=== PATIENT | male | born 1955 | race Caucasian/White ===

== ENCOUNTER 2021-12-06 14:24 | Outpatient (RCR) | payer MEDICARE, SELFPAY | END 2022-02-09 10:45 | disposition home or self-care (01) | PROVIDERS: PCP Family Medicine; Visit Provider Family Medicine | DX: M25.561 Pain in right knee (principal); M25.562 Pain in left knee; Z51.89 Encounter for other specified aftercare | CPT/HCPCS: 97110; 97140 ==

== ENCOUNTER 2022-03-10 17:22 | Emergency (ER) | payer MEDICARE, SELFPAY ==
[2022-03-10 17:39] VITALS: BP 151/103; PULSE 67; RESP 18; TEMP 36.4; O2SAT 96; BMI 37.7
--- OUTSIDE RECORDS SUMMARY | 2022-03-10 17:55 | XMS_ITS | Clinical Summary ---
:1955 Author Organization [facility] [place] [address] Care Team Providers Name Role Phone Laila Rodriguez DO Primary Care Provider Christi Ascencio RN Unavailable Camille Wagoner RN Unavailable Allergies Active Allergy Reactions Severity Noted Date Comments Dicyclomine Other - Describe In 05/14/2013 Problems breathing Comment Field and tightness in throat Penicillins Rash 12/11/2007 [place] Throat High 05/02/2009 Swelling/Closing Sulfa (Sulfonamide Rash 07/13/2009 Antibiotics) Medications Medication Sig Dispensed Refills Start End Status Date Date traZODone (DESYREL) TAKE 1 TABLET BY 90 tablet 1 05/14/20 Active 50 mg MOUTH EVERY NIGHT 19 tabletIndications: AT BEDTIME Insomnia, idiopathic blood-glucose by Not Applicable 1 Device 3 10/23/19 Active meterIndications: route. Dispense 20 Insulin dependent meter, test type 2 diabetes strips, lancets mellitus (HC) covered by pt ins. E11.9 IDDM type II - Test 3 times/day. TAMELA-LANTAIndicatio TAKE 30ML BY 355 mL 11 11/19/19 Active ns: History of MOUTH THREE TIMES 20 gastroesophageal DAILY NEEDED reflux (GERD) ONETOUCH DELICA TEST THREE TIMES 300 Each 3 03/01/20 Active PLUS LANCET 33 DAILY 20 gauge miscIndications: Type 2 diabetes mellitus without complication, with long-term current use of insulin (HC) benzonatate Three Times A Day 0 Active (TESSALON) 100 mg as needed capsule diphenhydrAMINE Every 8 Hours as 0 Active (BENADRYL) 25 mg needed capsule diphenoxylate-atrop Three Times A Day 0 Active ine, 2.5-0.025 mg, as needed (LOMOTIL) 2.5-0.025 mg tablet escitalopram Take 1 Tablet (10 0 01/04/20 Active oxalate (LEXAPRO) mg) by mouth 21 10 mg tablet every morning. Austedo 6 mg tab 6 mg 2 times 0 02/29/20 Active daily. Take with 21 9 mg tablet for total of 15 mg BID Austedo 9 mg tab Take 9 mg by 0 03/27/20 Active mouth 2 times 21 daily. Take with 6 mg tablet for total of 15 mg BID novofine autocover USE FOUR TIMES 400 Each 2 04/28/20 Active 30 gauge x 1/3 DAILY DIRECTED 21 needleIndications: Uncontrolled type 2 diabetes mellitus with hyperglycemia (HC) levothyroxine TAKE 1 TABLET BY 30 Tablet 12 05/02/20 Active (SYNTHROID) 75 mcg MOUTH DAILY 21 tabletIndications: Hypothyroidism (acquired) multivitamin (MVI) Take 1 Tablet by 90 Tablet 3 05/16/20 Active tabletIndications: mouth once daily. 21 Encounter for general health examination losartan (COZAAR) Take 1 Tablet (50 90 Tablet 3 06/15/19 Active 50 mg mg) by mouth once 22 tabletIndications: daily. HTN (hypertension) amLODIPine Take 1 Tablet (5 90 tablet. 1 08/23/19 A ctive (NORVASC) 5 mg mg) by mouth once 22 tabletIndications: daily. HTN (hypertension) insulin aspart, Prior to meals 15 mL 10 09/07/19 Active U-100, (NovoLOG per ssi tid. 22 Flexpen U-100 Glucose Insulin) 100 140-189=1U, unit/mL (3 mL) 190-239=2U, penIndications: 240-289=3U,290-33 Controlled type 2 9=4U,340-399=5U,4 diabetes mellitus 00-449=6U without complication, with long-term current use of insulin (HC) gabapentin TAKE 3 CAPSULES 810 Capsule 1 09/21/19 A ctive (NEURONTIN) 300 mg BY MOUTH THREE 22 capsuleIndications: TIMES DAILY Depression, major, in remission (HC) atorvastatin TAKE 1 TABLET BY 90 Tablet 0 10/20/19 Active (LIPITOR) 40 mg MOUTH EVERY NIGHT 22 tabletIndications: AT BEDTIME Controlled type 2 diabetes mellitus without complication, with long-term current use of insulin (HC) cyanocobalamin TAKE 1 TABLET BY 90 Tablet 3 11/16/19 Active (VITAMIN B12) 1,000 MOUTH DAILY 22 mcg tabletIndications: B12 deficiency hydrocortisone 1 % Apply topically 0 Active cream to affected area(s) 2 times daily. calcium carbonate Chew 1,000-2,000 0 Active (TUMS) 200 mg mg by mouth each calcium (500 mg) time if needed. chewable tablet Chew 2-4 tablets by mouth between meals and at bedtime as needed dextromethorphan Take 5-10 mL by 0 Active (ROBITUSSIN COUGH mouth every 4 LONG-ACTING) 15 hours if needed mg/5 mL liquid for Cough. Q4-6H prn for cough or congestion metFORMIN Take 4 Tablets 0 11/18/19 Activ e (GLUCOPHAGE XR) 500 (2,000 mg) by 22 mg Extended-Release mouth once daily. tabletIndications: Do NOT take until Insulin dependent November 20 type 2 diabetes mellitus (HC) ALPRAZolam (XANAX) Take 1 mg by 0 Active 1 mg tablet mouth in the morning and 1 mg in the evening. buPROPion Take 100 mg by 0 Activ e (WELLBUTRIN SR) 100 mouth in the mg morning and 100 Sustained-Release mg in the tablet evening. hydrOXYzine HCL Take 50 mg by 0 Active (ATARAX) 50 mg mouth in the tablet morning and 50 mg in the evening. mirtazapine Take 30 mg by 0 Acti ve (REMERON) 30 mg mouth at bedtime. tablet EPINEPHrine Inject 1 pen 0 Activ e (EpiPen) 0.3 mg/0.3 intramuscular mL auto-injector each time if needed for Allergic Reaction. diclofenac topical Apply 4 g 0 A ctive (Voltaren) 1 % gel topically to affected area(s) 4 times daily if needed. propranoloL TAKE 1 TABLET BY 270 Tablet 3 12/15/19 Active (INDERAL) 20 mg MOUTH 3 TIMES 22 tabletIndications: DAILY HTN (hypertension) acetaminophen TAKE 2 TABLETS BY 540 Tablet 3 12/15/19 Active (TYLENOL EXTRA MOUTH 3 TIMES 22 STRGTH) 500 mg DAILY tabletIndications: Pain omeprazole TAKE 1 CAPSULE BY 90 Capsule 2 02/08/20 Active (PRILOSEC) 20 mg MOUTH DAILY 22 Delayed-Release --TAKE 1 HOUR capsuleIndications: BEFORE A MEAL- Gastric reflux tamsulosin (FLOMAX) Take 1 Capsule 90 Capsule 1 02/08/20 Active 0.4 mg (0.4 mg) by mouth 22 capsuleIndications: once daily after Urinary a meal. incontinence, unspecified type OneTouch Ultra Test TEST THREE TIMES 300 Each 3 02/08/20 Active stripIndications: DAILY 22 Type 2 diabetes mellitus without complication, with long-term current use of insulin (HC) Lantus Solostar INJECT 70 UNITS 30 mL 0 03/06/20 Active U-100 Insulin 100 SUBCUTANEOUSLY 22 unit/mL (3 mL) ONCE DAILY penIndications: Controlled type 2 diabetes mellitus without complication, with long-term current use of insulin (HC) insulin glargine, Inject 70 units 45 mL 1 09/21/19 Discontinued U-100, (Lantus subcutaneous once 022 Solostar U-100 daily. Product Insulin) 100 desired: LANTUS unit/mL (3 mL) SOLOSTAR. New penIndications: dose Controlled type 2 diabetes mellitus without complication, with long-term current use of insulin (HC) aspirin (ECOTRIN) Take 1 Tablet (81 0 11/11/1901/19 Discontinued 81 mg enteric mg) by mouth once 022 (*Patient coated daily with a states no tabletIndications: meal. l onger GUSTAFSON (dyspnea on taki ng/Not on exertion) sending facility l ist) Active Problems Problem Noted Date Stage 3a chronic kidney disease 11/28/2021 Type 2 diabetes mellitus, with long-term current use o f insulin 11/17/2021 Dyspnea 11/17/2021 Abnormal stress test 11/17/2021 Overview: - 10/25/21 NM Stress Test: Small area of m ild reversibility identified in the anteroseptal region of the left ventricle, apical segment. This is suggestive of a small area of ischemia. 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 05/02/2009 Resolved Problems Problem Noted Date Resolved Date Rheumatoid arthritis(714.0) 05/02/2009 07/13/2009 Benign neoplasm of colon 08/12/2008 04/28/2019 Encounters Date Type Specialty Care Team Description 03/05/2022 Refill Laila Rodriguez DO Refi ll Request (Lantus Solostar U-100 Insulin) 02/09/2022 Office Visit Antonio Merida Consult (GUSTAFSON) MD Iam 02/09/2022 Travel 02/07/2022 Refill Laila Rodriguez DO Refi ll Request (Onetouch Ultra Test) 02/06/2022 Refill Laila Rodriguez DO Refi ll Request (Omeprazole/stone sulosin) 01/24/2022 Orders Only Scanner <No scans attac hed> 01/24/2022 Orders Only Scanner <No scans attac hed> 12/26/2021 Refill Laila Rodriguez DO Refi ll Request (Aspirin Chewable) 12/22/2021 Refill Laila Rodriguez DO Refi ll Request (Aspirin Chewable) 12/19/2021 Refill Laila Rodriguez DO Refi ll Request (ASPIRIN LOW CHEW 81MG) 12/19/2021 Telephone Laila Rodriguez DO Resu lts (PFTs) 12/14/2021 Procedure Only Testing (COMP LETE PFT PER DR. RODRIGUEZ/) 12/14/2021 Travel 12/11/2021 Refill Mary Oliver MD Refill Request (Aspirin Chewable) 12/11/2021 Refill Laila Rodriguez, Refi ll Request (Propranolol, Acetaminophen) from Last 3 Months Immunizations Name Administration Dates Next Due COVID-19 vaccine (Moderna 06/30/2020, 06/02/2020 100mcg/0.5mL) PF, MDV Hepatitis B (Adult) 04/24/2013, 02/10/2013, 12/17/2012 Influenza A (H1N1), Inactivated 03/17/2009 Influenza Intradermal PF 18-64 yrs 02/17/2007 Influenza Virus, Unspecified 05/14/2018, 04/17/2017, 016, 02/15/2015, 02/22/2014, 03/03/2013, 02/28/2012, 01/30/2011, 02/08/2010, 02/17/2007 Influenza, IIV3 (Age 6-35 mos) 02/08/2010, 01/31/2009 Influenza, IIV3 (Age >=3 years) 02/28/2012, 01/30/2011, 04/20, 03/14/2007, 03/30/2005 Influenza, IIV4 02/08/2021, 02/11/2020, 02/17/2019, 05/14/2018, 04/17/2017, 04/17/2017, 03/26/2016, 03/26/2016, 02/15/2015, 02/15/2015, 02/22/2014, 02/22/2014, 03/03/2013, 02/28/2012, 01/30/2011, 02/08/2010, 02/17/2007 Influenza, IIV4 (=>6mos) MDV 03/03/2013 Pneumococcal Poly,23-Valent 12/20/2015 (Pneumovax) Pneumococcal conj 13-Valent (Prevnar 12/26/2018 13) TD, UNSPECIFIED 02/08/2010 Tdap 02/08/2010 Zoster (Shingrix-RZV, recombinant) 05/08/2021, 03/09/2021 Zoster (Zostavax-ZVL, live) 06/15/2013 Family History Medical History Relation Name Comments Heart attack Brother 2 stents Heart attack Father triple bypass Heart attack Mother triple bypass Relation Name Status Comments Brother Father Mother Social History Tobacco Use Types Packs/Day Years Used Date Never Smoker Smokeless Tobacco: Never Used Tobacco Cessation: Counseling Given: Yes Alcohol Use Standard Drinks/Week Comments Not Currently 0 (1 standard drink = 0.6 oz pure alcoho l) 30 years sober Alcohol Habits Answer Date Recorded How often do you have a drink containing alcohol? Never 01/16/2019 How many drinks containing alcohol do you have on a Not aske d typical day when you are drinking? How often do you have six or more drinks on one Not asked occasion? Comment: 30 years sober 01/16/2019 Sex Assigned at Date Recorded Not on file COVID-19 Exposure Response Date Recorded In the last 10 days, have you been in contact with No / Unsu re 02/09/2022 1:42 PM CDT someone who was confirmed or suspected to have Coronavirus/COVID-19? Obstetrics History Last Filed Vital Signs Vital Sign Reading Time Taken Comments Blood Pressure 126/84 02/09/2022 2:05 PM CDT Pulse 73 02/09/2022 2:05 PM CDT Temperature 36.9 ??C (98.5 ??F) 11/18/2021 8:09 AM CDT Respiratory Rate 18 11/18/2021 8:09 AM CDT Oxygen Saturation 97% 02/09/2022 2:05 PM CDT Inhaled Oxygen Concentration - - Weight 117 kg (258 lb) 02/09/2022 2:05 PM CDT Height 177.8 cm (5' 10) 02/09/2022 2:05 PM CDT Body Mass Index 37.02 02/09/2022 2:05 PM CDT Plan of Treatment Upcoming Encounters Date Type Specialty Care Team Description 03/21/2022 Appointment 04/04/2022 Office Visit Laila Rodriguez DO [phone] (Wo rk) 04/27/2022 Office Visit Antonio Merida MD [address] [facility] [address] [place], [place] [address] (Wo rk) Health Maintenance Due Date Last Done Comments Tetanus booster 02/09/2020 02/08/2010, 02/08/2010 Medicare Wellness for age 65+ 2021 Pneumococcal series for age 65+ (3 2021 12/26/2018, 0 12/20/2015 - PPSV23 or PCV20) COVID-19 vaccine series (5 - 12/21/2021 10/26/2021, 021, Booster for Moderna series) 06/30/2020, Addition al history exists Influenza for age 65+ 01/18/2022 02/08/2021, 02/11/2020, 02/17/2019, Additional history exists Depression screening for age 12+ 08/02/2022 08/02/2021, , 07/19/2020, Additional history exists BMI (ht and wt on same day) for 02/09/2023 02/09/2022, 08/18, age 18+ 06/16/2019, Additional history exists Lipids for age 45-75 11/15/2026 11/15/2021, 05/16/2021, 05/25/2020, Additional history exists Colonoscopy through age 75 04/28/2029 04/28/2019, 9, 04/28/2019, Additional history exists Tdap Completed 02/08/2010 Zoster (shingles) series for age Completed 05/08/2021, , 50+ 06/15/2013 Hepatitis C screening for age Completed 05/16/2021 18-79 Procedures Procedure Name Priority Date/Time Associated Diagnosis Comme nts SCAN-EYE EXAM 01/24/2022 12:00 AM Results for this CDT procedure are i n the results section. SCAN-EYE EXAM 01/24/2022 12:00 AM Results for this CDT procedure are i n the results section. DE BRNCDILAT RSPSE Routine 12/14/2021 12:00 AM GUSTAFSON (dyspnea on Results for this SPMTRY CDT exertion) procedure are i n PRE&POST-BRNCDILAT the resul ts ADMN section. from Last 3 Months Results SCAN-EYE EXAM (01/24/2022 12:00 AM CDT) Narrative This result has an attachment that is no t available. Scanner OTHER SCAN-EYE EXAM (01/24/2022 12:00 AM CDT) Narrative This result has an attachment that is no t available. Scanner OTHER DE BRNCDILAT RSPSE SPMTRY PRE&POST-BRNCDILAT ADMN (12/14/2021 12:00 AM CDT) Narrative This result has an attachment that is no t available. Jovanna Arreola MD [facility] - RESPIRATORY [facility] from Last 3 Months Insurance Payer Benefit Plan / Subscriber ID Effective Dates Phone Addre ss Type Group MEDICARE PART A MEDICARE PART A [id number] 1992-Present ATTN: CLAIMS - HB USE ONLY HB ONLY [address] [place] [address] [place] [facility] [id number] 2021-Present [address] [place] [address] Advance Directives Latest Code Status on File Code Status Date Activated Date Inactivated Comments Full Code 11/17/2021 10:50 AM 11/18/2021 12:46 PM Code Status Discussion: Unable to Assess Preferences, Provid er to review later Full Code 09/19/2018 3:26 PM 09/19/2018 6:42 PM Full Code 08/12/2008 12:33 PM 08/13/2008 2:16 AM Care Teams Shuttle Fixer Relationship Specialty Start Date End Date Laila Rodriguez DO PCP - General Family Practice 06/17/19 [address] [place] [address] Christi Ascencio RN Care Manager - [facility] Registered Nurse 09/17/[address] [place] [address] [phone] Camille Wagoner RN Care Manager - [facility] [place]istered Nurse 09/17/[address] [place] [address] [phone] Radha Merino, tromper - [facility] Registered Nurse 09/17/[address] [place] [address] [address], [place] [address]
--- NOTE | 2022-03-10 17:56 | ED.GENADULT ---
HPI - General Adult General Chief complaint: Cough Stated complaint: Lightheaded, High Blood Pressure Time Seen by Provider: 03/10/22 17:23 History of Present Illness HPI narrative: This 66-year-old male comes in reporting nasal congestion and occasional cough. Symptoms started yesterday. He lives in an assisted living facility and is able to ambulate around freely. He states that there are some people nearby who have pneumonia and he is concerned that he is having some kind infection. He arrives with normal temperature with normal pulse and respirations. His oximetry is 96% on room air. He does not report any fever. He states that he feels some shortness of breath. Related Data Home Medications Medication Instructions Recorded Confirmed acetaminophen 500 mg tablet mg 03/10/22 alprazolam 1 mg tablet mg 03/10/22 amlodipine 5 mg tablet mg 03/10/22 atorvastatin 40 mg tablet mg 03/10/22 bupropion HCl 100 mg tablet,12 hr mg PO 03/10/22 sustained-release cyanocobalamin (vitamin B-12) mcg 03/10/22 1,000 mcg tablet deutetrabenazine 6 mg tablet mg PO 03/10/22 (Austedo) deutetrabenazine 9 mg tablet mg PO 03/10/22 (Austedo) diclofenac sodium 1 % topical gel topical 03/10/22 escitalopram oxalate 10 mg tablet mg 03/10/22 gabapentin 300 mg capsule mg 03/10/22 hydroxyzine HCl 50 mg tablet mg 03/10/22 insulin aspart U-100 100 unit/mL subcut 03/10/22 (3 mL) subcutaneous pen (Novolog Flexpen U-100 Insulin aspart) insulin glargine 100 unit/mL (3 unit subcut 03/10/22 mL) subcutaneous pen (Lantus Solostar U-100 Insulin) levothyroxine 75 mcg tablet mcg 03/10/22 losartan 50 mg tablet mg 03/10/22 metformin 500 mg tablet,extended mg PO 03/10/22 release 24 hr mirtazapine 30 mg tablet mg 03/10/22 multivitamin with folic acid 400 tab PO 03/10/22 mcg tablet (Tab-A-Reina) omeprazole 20 mg capsule,delayed mg 03/10/22 release propranolol 20 mg tablet mg 03/10/22 tamsulosin 0.4 mg capsule mg PO 03/10/22 trazodone 50 mg tablet mg 03/10/22 Allergies Allergy/AdvReac Type Severity Reaction Status Date / Time Penicillins Allergy Verified 03/10/22 17:35 strawberry Allergy Verified 03/10/22 17:35 Sulfa (Sulfonamide Allergy Verified 03/10/22 17:35 Antibiotics) benttyl Allergy Uncoded 03/10/22 17:35 Review of Systems Status of ROS: Reports: 10 or more systems reviewed and unremarkable except as noted in History and below Narrative: Constitutional: No fevers, no weight gain or loss. Eyes: No discharge. No vision changes. HENT: No congestion, no sore throat, no ear pain. Nasal congestion. Cardiovascular: No chest pain, no palpitations. Respiratory: Occasional cough. Gastrointestinal: No abdominal pain, no vomiting, no diarrhea. Genitourinary: No dysuria, no hematuria. Musculoskeletal: Normal range of motion. Skin: No rashes, no pruritis. Neurological: No dizziness, weakness, sensory change, speech change. Endo/Heme/Allergies: No bruising or bleeding. No polydipsia. Pysch: no suicidality, no anxiety, no insomnia. All other systems reviewed and are negative. PFSH PFS Social History Smoking Status: Never smoker How often do you have a drink containing alcohol: never AUDIT-C Alcohol total score: 0 Non-prescribed substance use: denies use Exam Narrative: Exam Narrative: Constitutional: Well-developed, well-nourished, no acute distress. HEENT: Normocephalic, atraumatic. Neck: Normal range of motion. Nontender. Supple. Heart: Regular. No murmurs. Normal rate. Intact distal pulses. Lungs: Clear to auscultation. No chest discomfort. No wheezes, rhonchi, or rales. Abdomen: Normal bowel sounds. Nontender. No rebound tenderness. Genitalia: Deferred. Back: No midline tenderness. Normal range of motion. Extremities: Normal range of motion. No injury. Skin: Intact. No rash. Warm. No erythema or pallor. Neurologic: No altered sensation. No weakness. Alert and oriented. Psychiatric: No suicidality. No anxiety or depression. No insomnia. Nursing notes and vitals signs are reviewed. Const: Vital Signs, click to edit/add: Vital Signs - 24 hr 03/10/22 17:39 03/10/22 18:00 Temperature 97.5 F L Pulse Rate [Right Pulse Oximeter] 67 64 Respiratory Rate 18 18 Blood Pressure [Ri ght Upper Arm] 151/103 H 174/98 H Pulse Oximetry 96 96 Oxygen Delivery Me thod Room Air Room Air Course Vital Signs Vital signs: Initial Vital Signs Temperature 97.5 F L 03/10/22 17:39 Temperature Source Temporal Artery Scan 03/10/22 17:39 Pulse Rate 67 03/10/22 17:39 Respiratory Rate 18 03/10/22 17:39 Blood Pressure 151/103 H 03/10/22 17:39 Blood Pressure Mean 119 03/10/22 17:39 Blood Pressure Position Sitting 03/10/22 17:39 Pulse Oximetry 96 03/10/22 17:39 Oxygen Delivery Method 03/10/22 17:39 Vital Signs Temperature 97.5 F L 03/10/22 17:39 Pulse Rate 67 03/10/22 17:39 Respiratory Rate 18 03/10/22 17:39 Blood Pressure 151/103 H 03/10/22 17:39 Pulse Oximetry 96 03/10/22 17:39 Oxygen Delivery Method 03/10/22 17:39 Temperature 97.5 F L 03/10/22 17:39 Pulse Rate 64 03/10/22 18:00 Respiratory Rate 18 03/10/22 18:00 Blood Pressure 174/98 H 03/10/22 18:00 Pulse Oximetry 96 03/10/22 18:00 Oxygen Delivery Method 03/10/22 18:00 Medical Decision Making MDM Narrative Medical decision making narrative: This patient comes in reporting nasal congestion and occasional cough. He lives in an assisted living facility and is concerned with these symptoms because some of the people around him of had pneumonia and he wonders if he has caught some kind of similar infection. On exam his lungs sound clear bilaterally. I did would talk with him about doing an x-ray but indicated reassurance with his vital signs and exam. A nasal swab is acquired and returns negative for COVID and influenza. This was reassuring enough for the patient to plans to return home and can use [id number] medicines as needed and directed for symptomatic relief. I instructed him to return if becoming worse, especially if becoming short of breath. Lab Data Labs: Lab Results 03/10/22 Range/Units 17:25 SARS-CoV-2 (PCR) Negative SARS-CoV-2 (Negative) Influenza Type A (PCR) Negative PCR FLU A (Negative) Influenza Type B (PCR) Negative PCR FLU B (Negative) Discharge Plan Discharge Clinical Impression: Acute upper respiratory infection Patient Disposition: Home, Self-Care Condition: Stable Additional Instructions: Take medication as needed and indicated. Follow up with MD or return if worsening. Prescriptions: No Action losartan 50 mg tablet atorvastatin 40 mg tablet trazodone 50 mg tablet alprazolam 1 mg tablet cyanocobalamin (vitamin B-12) 1,000 mcg tablet hydroxyzine HCl 50 mg tablet amlodipine 5 mg tablet acetaminophen 500 mg tablet bupropion HCl 100 mg tablet sustained-release 12 hr PO levothyroxine 75 mcg tablet tamsulosin 0.4 mg capsule PO mirtazapine 30 mg tablet gabapentin 300 mg capsule omeprazole 20 mg capsule,delayed release(DR/EC) propranolol 20 mg tablet metformin 500 mg tablet extended release 24 hr PO escitalopram oxalate 10 mg tablet insulin aspart U-100 [Novolog Flexpen U-100 Insulin] 100 unit/mL (3 mL) insulin pen SUBCUT insulin glargine [Lantus Solostar U-100 Insulin] 100 unit/mL (3 mL) insulin pen SUBCUT diclofenac sodium 1 % gel TOPICAL multivitamin with folic acid [Tab-A-Reina] 400 mcg tablet PO Austedo 6 mg tablet PO Austedo 9 mg tablet PO Follow Up/Referrals: Laila Rodriguez DO [Primary Care Provider] - Stand Alone Forms: [facility] Info Instructions
[2022-03-10 18:00] VITALS: BP 174/98; PULSE 64; RESP 18; O2SAT 96
[2022-03-10 18:31] LABS: SARS PCR* Negative SARS-CoV-2 (Negative)
[2022-03-10 18:32] LABS: PCR FLU A Negative PCR FLU A (Negative); PCR FLU B Negative PCR FLU B (Negative)
[2022-03-10 19:00] VITALS: BP 185/104; PULSE 65; O2SAT 96
== END 2022-03-10 19:19 | disposition home or self-care (01) ==
PROVIDERS: Emergency Provider Emergency Medicine Emergency Medical Services; PCP Family Medicine
DX: J06.9 Acute upper respiratory infection, unspecified (principal)
CPT/HCPCS: 87631; 99283; 99284

== ENCOUNTER 2022-11-21 13:45 | Outpatient (RCR) | payer MEDICARE, SELFPAY | END 2023-01-08 07:39 | disposition home or self-care (01) | PROVIDERS: PCP Family Medicine; Visit Provider Family Medicine | DX: M54.50 Low back pain, unspecified (principal); G89.29 Other chronic pain; M54.16 Radiculopathy, lumbar region; M25.60 Stiffness of unspecified joint, not elsewhere classified; M62.81 Muscle weakness (generalized); Z51.89 Encounter for other specified aftercare | CPT/HCPCS: 97110; 97140; 97161 ==

== ENCOUNTER 2022-12-11 08:40 | Outpatient (CLI) | payer MEDICARE, SELFPAY ==
--- NOTE | 2022-12-11 09:00 | CRLHL7_ITS ---
For Patients: As a result of the Century Cures Act, medical imaging exams and procedure reports are released immediately into your electronic medical record. You may view this report before your referring provider. If you have questions, please contact your health care provider. Indication: Dyspnea on exertion x 1-2 years, not worse, but not getting better. No known reason. Technique: Noncontrast CT chest Please note that all CT scans at this facility use dose modulation, iterative reconstruction, and/or weight-based dosing when appropriate to reduce radiation dose to as low as reasonably achievable. Comparison: 10/31/2021 Findings: Small left pleural effusion is present. There is mild atelectasis within the left lower lobe. Chronic scarring within the right lower lobe posteriorly. No enlarged intrathoracic lymph nodes. Coronary artery calcifications. Cysts within the liver are stable. Gallbladder absent. No infiltrate or edema. No pneumothorax. No fracture. Impression: Small left pleural effusion. Mild left lower lobe atelectasis. Mild scarring within the lingula and within the right lower lobe posteriorly. No adenopathy. Please note that all CT scans at this facility use dose modulation, iterative reconstruction, and/or weight-based dosing when appropriate to reduce radiation dose to as low as reasonably achievable. Dictated by Antonio Tirado MD @ 12/11/2022 12:22:33 PM (Electronically Signed)
== END 2022-12-11 08:41 | disposition home or self-care (01) ==
LOC: CT 08:41
PROVIDERS: PCP Family Medicine; Visit Provider Internal Medicine
DX: J98.4 Other disorders of lung (principal); R06.09 Other forms of dyspnea; J90 Pleural effusion, not elsewhere classified; J98.11 Atelectasis
CPT/HCPCS: 71250

== ENCOUNTER 2023-01-24 16:47 | Emergency (ER) | payer MEDICARE, SELFPAY ==
[2023-01-24] VITALS (12 sets, daily range): BP systolic 123–150; BP diastolic 56–93; PULSE 50–55; RESP 16; TEMP 35.7; O2SAT 93–97; BMI 36.4
--- NOTE | 2023-01-24 17:38 | CRLHL7_ITS ---
For Patients: As a result of the Cures Act, medical imaging exams and procedure reports are released immediately into your electronic medical record. You may view this report before your referring provider. If you have questions, please contact your health care provider. INDICATION: Chest pain. TECHNIQUE: Chest 2 views. COMPARISON: January 01, 2021. FINDINGS: Cardiovascular and mediastinum: Stable heart size and vasculature. Lungs and pleural spaces: Stable left lower lobe atelectasis/scarring. No sign of infiltrate or mass. No sign of pleural effusion. No pneumothorax. Bones and soft tissues: No significant findings. IMPRESSION: No acute or significant findings. Dictated by Sharan Strong MD @ 01/24/2023 10:51:39 PM (Electronically Signed)
--- NOTE | 2023-01-24 17:38 | CRLHL7_ITS ---
For Patients: As a result of the Century Cures Act, medical imaging exams and procedure reports are released immediately into your electronic medical record. You may view this report before your referring provider. If you have questions, please contact your health care provider. INDICATION: SUPRAPUBIC AND RLQ PAIN TECHNIQUE: CT abdomen and pelvis acquired with 100 cc Omnipaque 350 IV contrast. COMPARISON: None. FINDINGS: Lower chest: Unremarkable. Liver: Multiple cysts in the liver. Normal in size and attenuation. No suspicious masses. Gallbladder and bile ducts: Status post cholecystectomy. No intra or extra hepatic biliary ductal dilatation. Pancreas: Unremarkable. No mass or inflammation. Spleen: Unremarkable. Normal in size. No masses. Adrenal glands: Unremarkable. No nodules. Kidneys: Left interpolar region exophytic cyst measuring up to 6 centimeters in diameter. Right inferior pole cyst measuring 5.1 centimeters in diameter. No suspicious masses, stones, or hydronephrosis. GI tract: Unremarkable. Normal in caliber. No sign of mass or inflammation. Normal appendix. Vasculature: Abdominal aorta is normal in caliber. Mesenteric arteries are patent. Lymph nodes: No lymphadenopathy. Peritoneum/Abdominal Wall: Unremarkable. No sign of mass or infiltration. No free air or significant free fluid. Pelvis: Unremarkable. Bones: Unremarkable for age. IMPRESSION: No acute intra-abdominal process identified. Please note that all CT scans at this facility use dose modulation, iterative reconstruction, and/or weight-based dosing when appropriate to reduce radiation dose to as low as reasonably achievable. Dictated by Marnie Staton MD @ 01/24/2023 7:43:50 PM (Electronically Signed)
[2023-01-24] MEDS: LACTATED RINGERS 1000 ML 1,000 ML IV (17:59)
[2023-01-24 18:07] LABS: Basophils Percent Auto 0.3 % (0.0-3.0); Eosinophils Percent Auto 5.6 % (0.0-7.0); Hematocrit 39.9 % (37.0-53.0); Hemoglobin* 13.5 gm/dL (13.5-17.5); Lymphocytes Percent Auto 40.8 % (20-44); Mean Corpuscular HGB Conc 34 gm/dL (32-36); Mean Corpuscular Hemoglobin 29 pg (26-34); Mean Corpuscular Volume 85 fL (80-100); Monocytes Percent Auto 10.1 % (0.0-11.0); Neutrophils Percent Auto 43.2 % (42.0-72.0); Platelet Count* 201 K/uL (140-440); RDW Coefficient of Variation % 12.1 % (11.5-15.5); Red Blood Count 4.71 m/uL (4.30-5.90); White Blood Count* 3.95 K/uL (4.50-11.00)
[2023-01-24 18:08] LABS: Slide Review Reflex No
--- NOTE | 2023-01-24 18:10 | CRLHL7_ITS ---
For Patients: As a result of the Century Cures Act, medical imaging exams and procedure reports are released immediately into your electronic medical record. You may view this report before your referring provider. If you have questions, please contact your health care provider. INDICATION: Dizziness. TECHNIQUE: Noncontrast CT of the head with multiplanar reformat in bone and soft tissue algorithms. COMPARISON: CT head dated 05/12/2020. FINDINGS: No acute intracranial hemorrhage. The you-white matter interface is preserved. The ventricles are normal in size. Carotid siphon atherosclerotic calcification is noted. The skull base and calvarium are within normal limits. There is evidence of prior cataract surgery. Paranasal sinuses and mastoid air cells are predominantly clear. IMPRESSION: No acute intracranial abnormality. Please note that all CT scans at this facility use dose modulation, iterative reconstruction, and/or weight-based dosing when appropriate to reduce radiation dose to as low as reasonably achievable. Dictated by Desmond Chiang MD @ 01/24/2023 7:28:00 PM (Electronically Signed)
[2023-01-24 18:19] LABS: Albumin* 4.4 g/dL (3.3-5.0); Chloride* 103 mmol/L (96-114); Sodium* 140 mmol/L (135-149)
[2023-01-24 18:20] LABS: Potassium* 4.3 mmol/L (3.6-5.1)
[2023-01-24 18:22] LABS: Alkaline Phosphatase* 74 U/L (40-150); Anion Gap 10 mEq/L (7-15); Aspartate Amino Transferase* 28 U/L (12-35); Bilirubin Total* 0.4 mg/dL (0.1-1.5); Blood Urea Nitrogen* 15 mg/dL (7-30); Carbon Dioxide* 27 mmol/L (20-32); Creatinine* 0.9 mg/dL (0.5-1.5); Est. Creatinine Clearance* 75.03; Estimated Glomerular Filt Rate 94 ml/min; Glucose* 129 mg/dL (60-115); Lipase* 117 U/L (23-300); Total Protein* 7.7 g/dL (6.0-8.3)
[2023-01-24 18:23] LABS: Alanine Aminotransferase* 34 U/L (4-50); Calcium* 9.4 mg/dL (8.4-10.6); Magnesium* 1.8 mg/dL (1.5-2.6)
[2023-01-24 18:35] LABS: Troponin I* < 0.01 ng/mL (0.01-0.04)
[2023-01-24 18:43] LABS: PCR FLU A Negative PCR FLU A (Negative); PCR FLU B Negative PCR FLU B (Negative); PCR RSV Negative PCR RSV (Negative)
[2023-01-24 18:50] LABS: SARS PCR* Negative SARS-CoV-2 (Negative)
[2023-01-24 19:47] LABS: Appearance Urine Clear (Clear); Bilirubin Urine Negative (Negative); Blood Urine Negative (Negative); Color Urine Yellow (Yellow); Glucose Urine Negative (Negative); Ketones Urine Negative (Negative); Leukocyte Esterase Urine Negative (Negative); Nitrite Urine Negative (Negative); Protein Urine Negative (Negative); Urobilinogen Urine 0.2 (0.2-1.0)
[2023-01-24] MEDS: MECLIZINE HCL 25 MG TABLET PO (20:02)
--- NOTE | 2023-01-24 20:08 | ED.NURSE ---
Assumed care of pt at 1930 from Margie Jalloh RN.
[2023-01-24 20:11] LABS: RBC Urine 0-2 (0-2); Squamous Epithelial Cell Urine Few (None-Few); WBC Urine 0-2 (0-5)
--- NOTE | 2023-01-24 20:27 | ED_ITS ---
HPI - General Adult General Date Seen: 01/24/23 Chief complaint: Dizziness/Vertigo Stated complaint: High blood pressure, dizzy, lethargic Time Seen by Provider: 01/24/23 17:22 Source: patient History of Present Illness HPI narrative: Patient is a 67-year-old male with a history of diabetes, hypothyroidism presenting to the emergency department for dizziness, fatigue. He states the symptoms started earlier this morning. He was hypertensive at the [facility] in the gave him hydralazine. He states he she discusses his blood pressure did come back down to normal but it did not. States the dizziness feels like he is rocking on a boat. States he has had symptoms like this when his blood pressure has been elevated. Does states feeling dehydrated also. Denies lightheadedness, shortness of breath, weakness, numbness, diarrhea, constipation, fevers, chills, vision changes. Patient denies any recent head trauma. Does admit to some mild chest pain. No history of cardiac disease. Does state he is having some mild chest pain but has never needed a stent and does not have any known coronary disease. Is also admitting to suprapubic and right lower quadrant abdominal pain that started today. Related Data Home Medications Medication Instructions Recorded Confirmed acetaminophen 500 mg tablet 1,000 mg PO TID 03/10/22 01/24/23 alprazolam 1 mg tablet 1 mg PO BID 03/10/22 01/24/23 amlodipine 5 mg tablet 10 mg PO DAILY 03/10/22 01/24/23 atorvastatin 40 mg tablet 40 mg PO DAILY 03/10/22 01/24/23 bupropion HCl 100 mg tablet,12 hr 100 mg PO BID 03/10/22 01/24/23 sustained-release cyanocobalamin (vitamin B-12) 1,000 mcg PO DAILY 03/10/22 01/24/23 1,000 mcg tablet deutetrabenazine 6 mg tablet 6 mg PO BID 03/10/22 01/24/23 (Austedo) deutetrabenazine 9 mg tablet 9 mg PO BID 03/10/22 01/24/23 (Austedo) escitalopram oxalate 10 mg tablet 10 mg PO DAILY 03/10/22 01/24/23 gabapentin 300 mg capsule 900 mg PO TID 03/10/22 01/24/23 hydroxyzine HCl 50 mg tablet 50 mg PO BID 03/10/22 01/24/23 insulin aspart U-100 100 unit/mL 1 sliding scale dose subcut 03/10/22 01/24/23 (3 mL) subcutaneous pen (Novolog TIDWMEAL FlexPen U-100 Insulin aspart) insulin glargine 100 unit/mL (3 70 unit subcut DAILY 03/10/22 01/24/23 mL) subcutaneous pen (Lantus Solostar U-100 Insulin) levothyroxine 75 mcg tablet 75 mcg PO DAILY 03/10/22 01/24/23 losartan 50 mg tablet 50 mg PO DAILY 03/10/22 01/24/23 metformin 500 mg tablet,extended 2,000 mg PO DAILY 03/10/22 01/24/23 release 24 hr mirtazapine 30 mg tablet 30 mg PO HS 03/10/22 01/24/23 multivitamin with folic acid 400 1 tab PO DAILY 03/10/22 01/24/23 mcg tablet (Tab-A-Reina) omeprazole 20 mg capsule,delayed 20 mg PO DAILY 03/10/22 01/24/23 release propranolol 20 mg tablet 20 mg PO TID 03/10/22 01/24/23 tamsulosin 0.4 mg capsule 0.4 mg PO Q24H 03/10/22 01/24/23 trazodone 50 mg tablet 50 mg PO HS 03/10/22 01/24/23 hydrocortisone 1 % topical cream 1 applic topical BID PRN 01/24/23 01/24/23 Previous Rx's Medication Instructions Recorded meclizine 25 mg tablet 25 mg PO QID #20 tabs 01/24/23 Allergies Allergy/AdvReac Type Severity Reaction Status Date / Time Penicillins Allergy Verified 01/24/23 17:12 strawberry Allergy Verified 01/24/23 17:12 Sulfa (Sulfonamide Allergy Verified 01/24/23 17:12 Antibiotics) benttyl Allergy Uncoded 03/10/22 17:35 Review of Systems Status of ROS: Reports: 10 or more systems reviewed and unremarkable except as noted in History and below PFSH PFSH Social History Smoking Status: Never smoker How often do you have a drink containing alcohol: never AUDIT-C Alcohol total score: 0 Non-prescribed substance use: denies use Exam Narrative: Exam Narrative: Const: Well-nourished, Well-developed, in mild distress Eyes: PERRL, no conjunctival injection, and symmetrical lids ENMT: Atraumatic external nose and ears. Moist mucous membranes. Neck: Symmetric, trachea midline, No thyromegaly. CVS: RRR, No murmurs or gallops. Peripheral pulses 2+ and equal in all extremities RESP: Unlabored respiratory effort. Clear to auscultation bilaterally. GI: Nontender/Nondistended, No rebound or guarding. MSK:Extremities w/o deformity, Normal Active ROM Skin: Warm, Dry. No rashes or lesions. Neuro: Normal Muscle tone, No focal neurological deficits. Negative hints exam Psych: Awake, Alert, & Oriented x3. Appropriate mood and affect. Const: Vital Signs, click to edit/add: Vital Signs - 24 hr 01/24/23 17:07 01/24/23 17:22 01/24/23 17:28 Temperature 96.3 F L Pulse Rate 51 L 51 L Pulse Rate [Left P ulse Oximeter] 52 L Respiratory Rate 16 Blood Pressure 132/75 Blood Pressure [Ri ght Upper Arm] 144/93 H Pulse Oximetry 95 97 95 Oxygen Delivery Me thod Room Air 01/24/23 17:30 01/24/23 17:33 01/24/23 17:52 Temperature Pulse Rate 52 L 52 L 55 L Pulse Rate [Left P ulse Oximeter] Respiratory Rate Blood Pressure 139/73 133/56 L Blood Pressure [Ri ght Upper Arm] Pulse Oximetry 94 94 94 Oxygen Delivery Me thod 01/24/23 18:00 01/24/23 18:03 01/24/23 18:30 Temperature Pulse Rate 53 L 54 L 50 L Pulse Rate [Left P ulse Oximeter] Respiratory Rate Blood Pressure 123/72 Blood Pressure [Ri ght Upper Arm] Pulse Oximetry 94 93 95 Oxygen Delivery Me thod 01/24/23 18:36 01/24/23 19:13 01/24/23 19:30 Temperature Pulse Rate 51 L 53 L 51 L Pulse Rate [Left P ulse Oximeter] Respiratory Rate Blood Pressure 150/77 H Blood Pressure [Ri ght Upper Arm] Pulse Oximetry 95 95 97 Oxygen Delivery Me thod Course Vital Signs Vital signs: Initial Vital Signs Temperature 96.3 F L 01/24/23 17:07 Temperature Source Temporal Artery Scan 01/24/23 17:07 Pulse Rate 52 L 01/24/23 17:07 Respiratory Rate 16 01/24/23 17:07 Blood Pressure 144/93 H 01/24/23 17:07 Blood Pressure Mean 110 H 01/24/23 17:07 Blood Pressure Position Sitting 01/24/23 17:07 Pulse Oximetry 95 01/24/23 17:07 Oxygen Delivery Method Room Air 01/24/23 17:07 Vital Signs Temperature 96.3 F L 01/24/23 17:07 Pulse Rate 52 L 01/24/23 17:07 Respiratory Rate 16 01/24/23 17:07 Blood Pressure 144/93 H 01/24/23 17:07 Pulse Oximetry 95 01/24/23 17:07 Oxygen Delivery Method Room Air 01/24/23 17:07 Temperature 96.3 F L 01/24/23 17:07 Pulse Rate 51 L 01/24/23 19:30 Respiratory Rate 16 01/24/23 17:07 Blood Pressure 150/77 H 01/24/23 18:36 Pulse Oximetry 97 01/24/23 19:30 Oxygen Delivery Method Room Air 01/24/23 17:07 Medical Decision Making [facility] Narrative Medical decision making narrative: Patient 67-year-old male presented emergency department for multiple complaints. He states his biggest complaint currently is dizziness. States his dizziness occurs whenever he is hypertensive. He was given hydralazine at his assisted living states that in not improve his symptoms. Is complaining of very mild chest pain but he states has been going on for a while and previously had a heart catheterization done but was normal. States he is feeling dehydrated. Also complaining of lower abdominal pain and right lower quadrant pain. Head CT and abdominal/pelvis CT were ordered. Abdominal pain differential includes appendicitis, cystitis. Unlikely to be cholecystitis or an SBO. For his dizziness a consider TIA, stroke, BPPV. Cardiac workup was ordered along with lipase, cholecystitis the SARS B, magnesium, urinalysis EKG showed no concerning abnormalities. Patient's lab work showed no concerning abnormalities. Troponin was normal. No signs of UTI. Cultures flu/RSV was negative. Head CT showed no concerning abnormalities. Abdominal CT showed no concerning abnormalities. I did order a chest x-ray which was read by myself which showed no concerning abnormalities as read by myself. After receiving 1 L of lactated Ringer's he says his dizziness improved dramatically. He still having some dizziness and meclizine was given. After meclizine he states his symptoms have fully resolved and he feels good and 1 like to go home. With a negative hints exam and normal head CT is unlikely to be stroke so patient can be safely discharged. Lab Data Labs: Lab Results 01/24/23 01/24/23 Range/Units 17:55 19:41 WBC 3.95 L (4.50-11.00) K/uL RBC 4.71 (4.30-5.90) m/uL Hgb 13.5 (13.5-17.5) gm/dL Hct 39.9 (37.0-53.0) % MCV 85 (80-100) fL MCH 29 (26-34) pg MCHC 34 (32-36) gm/dL RDW Coeff of Adriana 12.1 (11.5-15.5) % Plt Count 201 (140-440) K/uL Neut % (Auto) 43.2 (42.0-72.0) % Lymph % (Auto) 40.8 (20-44) % Runnels % (Auto) 10.1 (0.0-11.0) % Eos % (Auto) 5.6 (0.0-7.0) % Baso % (Auto) 0.3 (0.0-3.0) % Neut # (Auto) 1.70 (1.7-7.0) K/uL Lymph # (Auto) 1.60 (0.90-2.90) K/uL Runnels # (Auto) 0.40 (0.00-0.90) K/UL Eos # (Auto) 0.20 (0.00-0.50) K/uL Baso # (Auto) 0.00 (0.00-0.30) K/uL Abs Immat Gran (auto) 0.00 (0.00-0.30) K/uL Imm/Tot Granulo (auto) 0.0 % Sodium 140 (135-149) mmol/L Potassium 4.3 (3.6-5.1) mmol/L Chloride 103 (96-114) mmol/L Carbon Dioxide 27 (20-32) mmol/L Anion Gap 10 (7-15) mEq/L BUN 15 (7-30) mg/dL Creatinine 0.9 (0.5-1.5) mg/dL Estimated Creat Clear 75.03 Estimated GFR 94 ml/min Glucose 129 H (60-115) mg/dL Calcium 9.4 (8.4-10.6) mg/dL Magnesium 1.8 (1.5-2.6) mg/dL Total Bilirubin 0.4 (0.1-1.5) mg/dL AST 28 (12-35) U/L ALT 34 (4-50) U/L Alkaline Phosphatase 74 (40-150) U/L Troponin I < 0.01 L (0.01-0.04) ng/mL Total Protein 7.7 (6.0-8.3) g/dL Albumin 4.4 (3.3-5.0) g/dL Lipase 117 (23-300) U/L Urine Color Yellow (Yellow) Urine Appearance Clear (Clear) Urine pH 6.0 (5.0-8.5) Ur Specific [place] 1.010 (1.000-1.030) Urine Protein Negative (Negative) Urine Glucose (UA) Negative (Negative) Urine Ketones Negative (Negative) Urine Blood Negative (Negative) Urine Nitrite Negative (Negative) Urine Bilirubin Negative (Negative) Urine Urobilinogen 0.2 (0.2-1.0) Ur Leukocyte Esterase Negative (Negative) Urine RBC 0-2 (0-2) Urine WBC 0-2 (0-5) Ur Squamous Epith Cells Few (None-Few) Urine Bacteria None (None) SARS-CoV-2 (PCR) Negative SARS-CoV-2 (Negative) Influenza Type A (PCR) Negative PCR FLU A (Negative) Influenza Type B (PCR) Negative PCR FLU B (Negative) RSV (PCR) Negative PCR RSV (Negative) Imaging Data CT scan - head: Radiologist's impression: INDICATION: Dizziness. TECHNIQUE: Noncontrast CT of the head with multiplanar reformat in bone and soft tissue algorithms. COMPARISON: CT head dated 05/12/2020. FINDINGS: No acute intracranial hemorrhage. The you-white matter interface is preserved. The ventricles are normal in size. Carotid siphon atherosclerotic calcification is noted. The skull base and calvarium are within normal limits. There is evidence of prior cataract surgery. Paranasal sinuses and mastoid air cells are predominantly clear. IMPRESSION: No acute intracranial abnormality. Please note that all CT scans at this facility use dose modulation, iterative reconstruction, and/or weight-based dosing when appropriate to reduce radiation dose to as low as reasonably achievable. Dictated by Desmond Chiang MD @ 01/24/2023 7:28:[address] scan - abdomen: Radiologist's impression: INDICATION: SUPRAPUBIC AND RLQ PAIN TECHNIQUE: CT abdomen and pelvis acquired with 100 cc Omnipaque 350 IV contrast. COMPARISON: None. FINDINGS: Lower chest: Unremarkable. Liver: Multiple cysts in the liver. Normal in size and attenuation. No suspicious masses. Gallbladder and bile ducts: Status post cholecystectomy. No intra or extra hepatic biliary ductal dilatation. Pancreas: Unremarkable. No mass or inflammation. Spleen: Unremarkable. Normal in size. No masses. Adrenal glands: Unremarkable. No nodules. Kidneys: Left interpolar region exophytic cyst measuring up to 6 centimeters in diameter. Right inferior pole cyst measuring 5.1 centimeters in diameter. No suspicious masses, stones, or hydronephrosis. GI tract: Unremarkable. Normal in caliber. No sign of mass or inflammation. Normal appendix. Vasculature: Abdominal aorta is normal in caliber. Mesenteric arteries are patent. Lymph nodes: No lymphadenopathy. Peritoneum/Abdominal Wall: Unremarkable. No sign of mass or infiltration. No free air or significant free fluid. Pelvis: Unremarkable. Bones: Unremarkable for age. IMPRESSION: No acute intra-abdominal process identified. Please note that all CT scans at this facility use dose modulation, iterative reconstruction, and/or weight-based dosing when appropriate to reduce radiation dose to as low as reasonably achievable. Dictated by Marnie Staton MD @ 01/24/2023 7:43:50 PM Chest x-ray: My impression: No acute cardiothoracic abnormalities ECG Data Attestation: I personally reviewed and interpreted this ECG as follows: Interpretation: Sinus bradycardia rate 49 beats per minute, normal intervals, normal axis, no ST or T-wave abnormalities. Discharge Plan Discharge Clinical Impression: Benign paroxysmal positional vertigo Qualifiers: Laterality: unspecified laterality Qualified Code(s): H81.10 - Benign paroxysmal vertigo, unspecified ear Patient Disposition: Home, Self-Care Condition: Stable Instructions: Benign Paroxysmal Positional Vertigo (DC) Additional Instructions: Take the meclizine as directed. One tablet up to 4 times daily. Return for new or worsening symptoms. Follow up with the primary care provider Prescriptions: New meclizine 25 mg tablet 25 mg PO QID Qty: 20 0RF No Action losartan 50 mg tablet 50 mg PO DAILY atorvastatin 40 mg tablet 40 mg PO DAILY trazodone 50 mg tablet 50 mg PO HS alprazolam 1 mg tablet 1 mg PO BID Rx Instructions: Take 1 tab by mouth Q AM; Take 0.5 tab by mouth Q HS cyanocobalamin (vitamin B-12) 1,000 mcg tablet 1,000 mcg PO DAILY hydroxyzine HCl 50 mg tablet 50 mg PO BID amlodipine 5 mg tablet 10 mg PO DAILY acetaminophen 500 mg tablet 1,000 mg PO TID bupropion HCl 100 mg tablet sustained-release 12 hr 100 mg PO BID levothyroxine 75 mcg tablet 75 mcg PO DAILY tamsulosin 0.4 mg capsule 0.4 mg PO Q24H mirtazapine 30 mg tablet 30 mg PO HS gabapentin 300 mg capsule 900 mg PO TID omeprazole 20 mg capsule,delayed release(DR/EC) 20 mg PO DAILY propranolol 20 mg tablet 20 mg PO TID metformin 500 mg tablet extended release 24 hr 2,000 mg PO DAILY escitalopram oxalate 10 mg tablet 10 mg PO DAILY insulin aspart U-100 [Novolog FlexPen U-100 Insulin] 100 unit/mL (3 mL) insulin pen 1 sliding scale dose SUBCUT TIDWMEAL insulin glargine [Lantus Solostar U-100 Insulin] 100 unit/mL (3 mL) insulin pen 70 unit subcut DAILY multivitamin with folic acid [Tab-A-Reina] 400 mcg tablet 1 tab PO DAILY [place]edo 6 mg tablet 6 mg PO BID Rx Instructions: Take with 9mg tablet to equal 15mg total BID w/ meals [place] 9 mg tablet 9 mg PO BID hydrocortisone 1 % cream 1 applic topical BID PRN Follow Up/Referrals: Laila Rodriguez DO [Primary Care Provider] - Stand Alone Forms: [facility] Info Instructions
== END 2023-01-24 20:37 | disposition home or self-care (01) ==
PROVIDERS: Emergency Provider Student in an Organized Health Care Education/Training Program; PCP Family Medicine
DX: H81.10 Benign paroxysmal vertigo, unspecified ear (principal)
CPT/HCPCS: 36415; 70450; 71046; 74177; 80053; 81001; 83690; 83735; 84484; 85025; 87631; 93005; 99283; 99285; A9270; J7120; Q9967

== ENCOUNTER 2023-05-15 16:07 | Outpatient (RCR) | payer MEDICARE, SELFPAY | END 2023-08-01 14:01 | disposition home or self-care (01) | PROVIDERS: PCP Family Medicine; Visit Provider Family Medicine | DX: M25.561 Pain in right knee (principal); M25.562 Pain in left knee; G89.29 Other chronic pain; Z91.81 History of falling; M62.81 Muscle weakness (generalized); Z51.89 Encounter for other specified aftercare | CPT/HCPCS: 97110; 97162 ==

== ENCOUNTER 2023-05-22 09:41 | Emergency (ER) | payer OTHER, SELFPAY ==
[2023-05-22 09:45] VITALS: BP 101/68; PULSE 60; RESP 20; O2SAT 97; BMI 36.6
[2023-05-22 10:40] LABS: PCR FLU A Negative PCR FLU A (Negative); PCR FLU B Negative PCR FLU B (Negative); PCR RSV Negative PCR RSV (Negative)
[2023-05-22 10:45] LABS: SARS PCR* Negative SARS-CoV-2 (Negative)
--- NOTE | 2023-05-22 11:34 | ED_ITS ---
HPI - General Adult General Chief complaint: Cough Stated complaint: Head cold three weeks Time Seen by Provider: 05/22/23 11:34 History of Present Illness HPI narrative: patient has had a head cold for the past 3 weeks and wants to get checked out. ASHLEY, sob, dizziness and taken tyenol and motrin with no relief of sx. denies fever. poor appetite and hx of DM. BS-100 this am 67-year-old man presenting to the emergency department complaint of frontal headache and congestion. I asked to clarify the shortness of breath any feels like that is because of nasal congestion. Has not taken a decongestant. He is denying dizziness at this time. Has tried Tylenol and Motrin has not gotten better. There was mention of dizziness on triage. Looks as if has been seen for peripheral vertigo in the past. He has had little cough. Denies fever. Does admit to having some neck pain. Underlying history of diabetes. Blood sugar this morning was 100. Admits probably has not had enough water to drink today. By the time I am seeing Mr. Leigh, he has screen negative for COVID influenza and RSV. Is not reporting a sore throat. Related Data Home Medications Medication Instructions Recorded Confirmed acetaminophen 500 mg tablet 1,000 mg PO TID 03/10/22 05/22/23 alprazolam 1 mg tablet 1 mg PO BID 03/10/22 05/22/23 amlodipine 5 mg tablet 10 mg PO DAILY 03/10/22 05/22/23 atorvastatin 40 mg tablet 40 mg PO DAILY 03/10/22 05/22/23 bupropion HCl 100 mg tablet,12 hr 100 mg PO BID 03/10/22 05/22/23 sustained-release cyanocobalamin (vitamin B-12) 1,000 mcg PO DAILY 03/10/22 05/22/23 1,000 mcg tablet deutetrabenazine 6 mg tablet 6 mg PO BID 03/10/22 05/22/23 (Austedo) deutetrabenazine 9 mg tablet 9 mg PO BID 03/10/22 05/22/23 (Austedo) escitalopram oxalate 10 mg tablet 10 mg PO DAILY 03/10/22 05/22/23 gabapentin 300 mg capsule 900 mg PO TID 03/10/22 05/22/23 hydroxyzine HCl 50 mg tablet 50 mg PO BID 03/10/22 05/22/23 insulin aspart U-100 100 unit/mL 1 sliding scale dose subcut 03/10/22 05/22/23 (3 mL) subcutaneous pen (Novolog TIDWMEAL FlexPen U-100 Insulin aspart) insulin glargine 100 unit/mL (3 70 unit subcut DAILY 03/10/22 05/22/23 mL) subcutaneous pen (Lantus Solostar U-100 Insulin) levothyroxine 75 mcg tablet 75 mcg PO DAILY 03/10/22 05/22/23 losartan 50 mg tablet 50 mg PO DAILY 03/10/22 05/22/23 metformin 500 mg tablet,extended 2,000 mg PO DAILY 03/10/22 05/22/23 release 24 hr mirtazapine 30 mg tablet 30 mg PO HS 03/10/22 05/22/23 multivitamin with folic acid 400 1 tab PO DAILY 03/10/22 05/22/23 mcg tablet (Tab-A-Reina) omeprazole 20 mg capsule,delayed 20 mg PO DAILY 03/10/22 05/22/23 release propranolol 20 mg tablet 20 mg PO TID 03/10/22 05/22/23 tamsulosin 0.4 mg capsule 0.4 mg PO Q24H 03/10/22 05/22/23 trazodone 50 mg tablet 50 mg PO HS 03/10/22 05/22/23 hydrocortisone 1 % topical cream 1 applic topical BID PRN 01/24/23 05/22/23 Previous Rx's Medication Instructions Recorded amoxicillin 875 mg tablet 875 mg PO BID 12 days #24 tabs 05/22/23 prednisone 20 mg tablet 40 mg (2 x 20 mg) PO DAILY 5 days 05/22/23 #10 tabs Allergies Allergy/AdvReac Type Severity Reaction Status Date / Time Penicillins Allergy Verified 05/22/23 09:51 strawberry Allergy Verified 05/22/23 09:51 Sulfa (Sulfonamide Allergy Verified 05/22/23 09:51 Antibiotics) benttyl Allergy Uncoded 03/10/22 17:35 Review of Systems Status of ROS: Reports: 6 or more systems reviewed and unremarkable except as noted in History and below [facility] Medical History (Updated 05/22/23 @ 09:57 by Juliane Cazares RN) Anxiety ?F41.9 - Anxiety disorder, unspecified (ICD-10) Depression ?F32.A - Depression, unspecified (ICD-10) Hypothyroid ?E03.9 - Hypothyroidism, unspecified (ICD-10) Diabetic acidosis, type II ?E11.10 - Type 2 diabetes mellitus with ketoacidosis without coma (ICD-10) Hypertension ?I10 - Essential (primary) hypertension (ICD-10) Social History Smoking Status: Never smoker Do you use any of these nicotine containing products: None How often do you have a drink containing alcohol: never AUDIT-C Alcohol total score: 0 Non-prescribed substance use: denies use Exam Narrative: Exam Narrative: Pleasant. Of good energy. Cranial nerves 2-12 intact. Pupils are equal and briskly reactive. Moving all extremities without difficulty, good strength and apparent sensation. Breathing easily. Subtly congested timbre. Sore to p alpation over the forehead and the maxillary sinuses. I do not see swelling or erythema. Left ear occluded somewhat with dried cerumen but TM is visible to be normal. Right TM as well is normal. Neck is supple but quite sore in the paracervical and trapezial musculature. No midline tenderness. Lungs are clear. He is not coughing here. Heart in regular rate and rhythm. Distant. Oropharynx is little thick. Trace erythema. Trace mucous. No cervical lymphadenopathy. Swallowing without difficulty. There is no stridor. Const: Vital Signs, click to edit/add: Vital Signs - 24 hr 05/22/23 09:45 05/22/23 12:10 Temperature 98.5 F Pulse Rate [Right Pulse Oximeter] 60 68 Respiratory Rate 20 16 Blood Pressure [Ri ght Upper Arm] 101/68 Pulse Oximetry 97 96 Oxygen Delivery Me thod Room Air Room Air Documenting provider has reviewed patient's vital signs: yes Course Vital Signs Vital signs: Initial Vital Signs Temperature Source Temporal Artery Scan 05/22/23 09:45 Pulse Rate 60 05/22/23 09:45 Respiratory Rate 20 05/22/23 09:45 Blood Pressure 101/68 05/22/23 09:45 Blood Pressure Mean 79 05/22/23 09:45 Blood Pressure Position Sitting 05/22/23 09:45 Pulse Oximetry 97 05/22/23 09:45 Oxygen Delivery Method Room Air 05/22/23 09:45 Vital Signs Pulse Rate 60 05/22/23 09:45 Respiratory Rate 20 05/22/23 09:45 Blood Pressure 101/68 05/22/23 09:45 Pulse Oximetry 97 05/22/23 09:45 Oxygen Delivery Method Room Air 05/22/23 09:45 Temperature 98.5 F 05/22/23 12:10 Pulse Rate 68 05/22/23 12:10 Respiratory Rate 16 05/22/23 12:10 Blood Pressure 101/68 05/22/23 09:45 Pulse Oximetry 96 05/22/23 12:10 Oxygen Delivery Method Room Air 05/22/23 12:10 Medical Decision Making MDM Narrative Medical decision making narrative: Headache seems to be of major complaint though also in the setting of what he describes as nasopharyngeal congestion. Would consider possible sinusitis in this setting. Otherwise no red flags for intracranial process. Possibly an issue also of headache related to some muscle tension of the neck. Distribution would be consistent here as well. Related to the head cold symptoms that he describes, has not done much to treat this yet. Nor addressed cervical tensio n/neck tension. Looks well otherwise here. I did review allergies with Mr. Leigh. He denies penicillin or amoxicillin allergy. See patient discharge plan Lab Data Lab results reviewed: Yes I reviewed the patient's lab results Labs: Lab Results 05/22/23 Range/Units 09:54 SARS-CoV-2 (PCR) Negative SARS-CoV-2 (Negative) Influenza Type A (PCR) Negative PCR FLU A (Negative) Influenza Type B (PCR) Negative PCR FLU B (Negative) RSV (PCR) Negative PCR RSV (Negative) Discharge Plan Discharge Additional Instructions: Do focus on hydration with water. I think some of your headache might be coming from a sore neck. Try to stretch that out, maybe get a massage. Warm packs. I like Excedrin-type medications for my headache. You could take generic version of this, 2 tablets. It seems he may have some sinus congestion as well that might be contributing to your headache. I have ordered for some prednisone; be aware that this can increase your blood sugars a little bit so keep an eye on them. Pseudoephedrine as an [id number] decongestant can be effective in helping drain your sinuses. This can also raise your pulse and blood pressure just a little bit. If you can tolerate this, I would take this regularly over the next 3 days. I personally like the 12 hour formulation. You could also try Neti pot and nasal saline rinses per package instructions. Sleep under the mist of a cool mist humidifier. Menthol vapors might also be helpful. If not improved in 3 days there will be an antibiotic waiting for you at the pharmacy that you can start. You told me you do not have an allergy to amoxicillin so that is what I sent in for you. If not better in 10 days or severe increase in your headache, be seen for further evaluation. Prescriptions: New prednisone 20 mg tablet 40 mg PO DAILY 5 Days Qty: 10 0RF amoxicillin 875 mg tablet 875 mg PO BID 12 Days Qty: 24 0RF No Action losartan 50 mg tablet 50 mg PO DAILY atorvastatin 40 mg tablet 40 mg PO DAILY trazodone 50 mg tablet 50 mg PO HS alprazolam 1 mg tablet 1 mg PO BID Rx Instructions: Take 1 tab by mouth Q AM; Take 0.5 tab by mouth Q HS cyanocobalamin (vitamin B-12) 1,000 mcg tablet 1,000 mcg PO DAILY hydroxyzine HCl 50 mg tablet 50 mg PO BID amlodipine 5 mg tablet 10 mg PO DAILY acetaminophen 500 mg tablet 1,000 mg PO TID bupropion HCl 100 mg tablet sustained-release 12 hr 100 mg PO BID levothyroxine 75 mcg tablet 75 mcg PO DAILY tamsulosin 0.4 mg capsule 0.4 mg PO Q24H mirtazapine 30 mg tablet 30 mg PO HS gabapentin 300 mg capsule 900 mg PO TID omeprazole 20 mg capsule,delayed release(DR/EC) 20 mg PO DAILY propranolol 20 mg tablet 20 mg PO TID metformin 500 mg tablet extended release 24 hr 2,000 mg PO DAILY escitalopram oxalate 10 mg tablet 10 mg PO DAILY insulin aspart U-100 [Novolog FlexPen U-100 Insulin] 100 unit/mL (3 mL) insulin pen 1 sliding scale dose SUBCUT TIDWMEAL insulin glargine [Lantus Solostar U-100 Insulin] 100 unit/mL (3 mL) insulin pen 70 unit subcut DAILY multivitamin with folic acid [Tab-A-Reina] 400 mcg tablet 1 tab PO DAILY Austedo 6 mg tablet 6 mg PO BID Rx Instructions: Take with 9mg tablet to equal 15mg total BID w/ meals Austedo 9 mg tablet 9 mg PO BID hydrocortisone 1 % cream 1 applic topical BID PRN Follow Up/Referrals: Laila Rodriguez DO [Primary Care Provider] - Stand Alone Forms: [employer] Info Instructions
[2023-05-22 12:10] VITALS: PULSE 68; RESP 16; TEMP 36.9; O2SAT 96
--- NOTE | 2023-05-22 12:11 | PC.NURSE ---
Report given to Katy at [place]. All questions answered. She will send a medical delivery driver to pick patient up. Left via ambulatory.
== END 2023-05-22 12:14 | disposition home or self-care (01) ==
PROVIDERS: Emergency Provider Family Medicine; PCP Family Medicine
DX: R51.9 Headache, unspecified (principal)
CPT/HCPCS: 87631; 99283; 99284

== ENCOUNTER 2023-12-12 08:30 | Outpatient (RCR) | payer OTHER, SELFPAY | END 2024-02-05 11:42 | disposition home or self-care (01) | PROVIDERS: PCP Family Medicine; Visit Provider Family Medicine | DX: R42 Dizziness and giddiness (principal); Z51.89 Encounter for other specified aftercare | CPT/HCPCS: 95992; 97110; 97112; 97161 ==

== ENCOUNTER 2024-07-10 11:31 | Outpatient (CLI) | payer OTHER, SELFPAY ==
--- NOTE | 2024-07-10 13:07 | W.ANESCHARGE ---
Anesthesia Charges Start Date/Time Anesthesia Start Date: 07/10/24 Anesthesia Start Time: 12:37 Stop Date/Time Anesthesia Stop Date: 07/10/24 Anesthesia Stop Time: 13:06 Coding CPT Codes CPT Codes: ANES LWR INTST SCR COLSC - 58270 ([id number]) P3 - PATIENT W/SEVERE SYS DISEASE, QX - FLIGHT DIRECTOR SVC W/ MD MED DIRECTION, QK - LIFT SUPERVISOR 2-4 CNCRNT ANES PROC
--- NOTE | 2024-07-10 13:28 | W.ANESCHARGE ---
Anesthesia Charges Start Date/Time Anesthesia Start Date: 07/10/24 Anesthesia Start Time: 12:37 Stop Date/Time Anesthesia Stop Date: 07/10/24 Anesthesia Stop Time: 13:06 Coding CPT Codes CPT Codes: ANES LWR INTST SCR COLSC - 61194 ([id number]) P3 - PATIENT W/SEVERE SYS DISEASE, QK - SOCIAL AND POLITICAL STUDIES PROFESSOR 2-4 CNCRNT ANES PROC, QX - PAPER FEEDER SVC W/ MD MED DIRECTION
== END 2024-07-10 11:32 | disposition home or self-care (01) ==
LOC: OP CLINIC 11:32
PROVIDERS: PCP Family Medicine; Visit Provider Internal Medicine Gastroenterology
DX: Z12.11 Encounter for screening for malignant neoplasm of colon (principal); Z86.0100 Personal history of colon polyps, unspecified
CPT/HCPCS: 00812; 45378; J2704

== ENCOUNTER 2024-09-11 12:31 | Outpatient (RCR) | payer OTHER, SELFPAY | END 2025-01-09 23:59 | disposition home or self-care (01) | PROVIDERS: PCP Family Medicine; Visit Provider Family Medicine | DX: M54.2 Cervicalgia (principal); M25.511 Pain in right shoulder; M25.512 Pain in left shoulder; Z52.89 Donor of other specified organs or tissues; Z51.89 Encounter for other specified aftercare | CPT/HCPCS: 97110; 97161 ==

== ENCOUNTER 2024-12-08 14:50 | Outpatient (CLI) | payer OTHER, SELFPAY | END 2024-12-08 14:51 | disposition home or self-care (01) | PROVIDERS: PCP Family Medicine; Visit Provider Family Medicine | DX: E11.649 Type 2 diabetes mellitus with hypoglycemia without coma (principal) | CPT/HCPCS: A0998 ==

== ENCOUNTER 2025-03-29 10:06 | Outpatient (CLI) | payer OTHER, SELFPAY | END 2025-03-29 10:07 | disposition home or self-care (01) | LOC: NFLDUCREF 10:07 | PROVIDERS: PCP Family Medicine | DX: L03.311 Cellulitis of abdominal wall (principal) | CPT/HCPCS: 87070; 87186 ==

== ENCOUNTER 2025-04-17 16:45 | Outpatient (CLI) | payer OTHER, SELFPAY | END 2025-04-17 16:46 | disposition home or self-care (01) | LOC: AMB 04-22 16:06 | PROVIDERS: PCP Family Medicine; Visit Provider Emergency Medicine Emergency Medical Services | DX: R07.89 Other chest pain (principal) | CPT/HCPCS: A0425; A0429 ==

== ENCOUNTER 2025-04-17 17:03 | Emergency (ER) | payer OTHER, SELFPAY ==
--- OUTSIDE RECORDS SUMMARY | 2025-04-17 17:05 | XMS_ITS | CCD ---
Author Organization Unknown Care Team Providers Care Paving Rammer Name Role Phone Resolution Agent, [place] Primary Care Provider Unava ilable Unavailable Chronic Care Management Unavaila ble Summary Purpose DataExchange Insurance Providers Payer name Policy type / Coverage type Covered democrat ID Effective Begin Date Effective End Date [facility] Commercial Insurance [id number] 2021 Unkn own Family History Family History data not found Medication Administered No Medication Administered data Medical Equipment No Medical Equipment data Assessments No Assessment data Reason For Visit No Reason For Visit data Review of Systems No Review of Systems data Physical Exam No Physical Exam data History of Present Illness No History of Present Illness data Advance Directives No Advance Directive data
--- OUTSIDE RECORDS SUMMARY | 2025-04-17 17:06 | XMS_ITS | Continuity of Care Document ---
Author Organization [facility] Address [address] [place] [address] Assessment Encounter Date Assessment Date Assessment LastModified by Organization Details LastModified Time 02/01/2025 02/01/2025 ASSESSMENT: Patient is a good candidate for conservative care and the prognosis is for a favorable outcome that achieves the patients' goals. We discussed etiology, activity modifications, home care, and other treatment options. Initially, it is recommended that the patient receive in-office treatment 1 times per week for 8 weeks at which time a re-evaluation will be performed to determine an appropriate change in plan. Initially, treatment will focus on joint manipulation to restore range of motion and reduce pain. We will slowly progress to therapeutic exercises and activities to improve function, strength, and stability may also be used as warranted. If the patient is not responding as expected, more invasive procedures will be discussed along with a referral. All considerations above were discussed with the patient and questions answered to satisfaction. If the patient should have any additional questions, or should the condition evolve or worsen, the patient should not hesitate to contact our office. [email or web address] Not available 02/01/2025 21:45:25 Plan of Treatment Reminders Order Date Submit Date Provider Last Modified By Organization Details Last Modified Time Details Appointments DC Treatment 2024 10:00A M Srikanth Luciano [place] Not available Not available Not available Lab None recorded. Referral None recorded. Procedures None recorded. Surgeries None recorded. Imaging None recorded. Medication Orders None recorded. Patient TargetsNo targets recorded. Patient InstructionsNo instructions recorded. Reason for Referral None Reported. 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 Active 2023 Srikanth Luciano [place] [address], [place], [address], [place] [facility] 10:09:40 Somatic dysfunction of sacral spine 051761954 Active 2023 Srikanth Luciano [place] [address], [place], [address], [place] [facility] 10:09:40 Lumbar segmental dysfunction 005256477 Active 2023 Srikanth Luciano [place] [address], [place], [address], [place] [facility] 10:09:40 Low back pain 132228980 Active 2023 Srikanth Luciano [place] [address], [place], [address], [place] [facility] 10:09:40 Neck pain 28245006 Active 2024 [place] [address], [place], [address], [place] [facility] 17:21:38 Lesion of lumbar spine 638384628 Active 2024 Srikanth Luciano [place] [address], [place], [address], [place] [facility] 17:21:38 Cervical segmental dysfunction 217114901 Active [address], [place], [address], [place] [facility] 17:21:38 Problem Notes None recorded. Procedures Surgical History Date Name Laterality Status Provider Name and Address Organization Details Recorded Time 17415: Spinal manipulation , 3 to 4 regions completed [place] [address], [place], [address], [place] [facility] 02/15/2025 10:09:40 5 24774: Spinal manipulation , 3 to 4 regions completed Srikanth [place]on[place], [place] [address], [place], [address], [place] [facility] 02/01/2025 21:45:32 5 93845: Spinal manipulation , 3 to 4 regions completed Srikanth Ericksonbbels, [place] [address], [place], [address], [place] [facility] 12/21/2024 14:21:59 5 09728: Spinal manipulation , 3 to 4 regions completed Srikanth Ericksonbbels, [place] [address], [place], [address], [place] [facility] 12/15/2024 14:22:19 5 49630: Spinal manipulation , 3 to 4 regions completed Srikanth Luciano, [place] [address], [place], [address], [place] [facility] 12/07/2024 11:20:45 5 43973: Spinal manipulation , 3 to 4 regions completed Srikanth Luciano, [place] [address], [place], [address], [place] [facility] 11/23/2024 20:48:14 5 31601: Spinal manipulation , 3 to 4 regions completed Srikanth Luciano, [place] [address], [place], [address], [place] [facility] 11/09/2024 17:22:02 5 68586: Spinal manipulation , 3 to 4 regions completed Srikanth Ericksonbbels, [place] [address], [place], [address], [place] [facility] 10/22/2024 20:08:48 4 71486: Spinal manipulation , 3 to 4 regions completed Srikanth Ericksonbbels, [place] [address], [place], [address], [place] [facility] 05/06/2024 15:10:28 4 22794: Spinal manipulation , 3 to 4 regions completed Srikanth Luciano [place] [address], [place], [address], [facility] 04/22/2024 11:55:57 Imaging Results None recorded. Procedure Notes None recorded. Medical Equipment None Reported. Vitals None Recorded Social History None recorded. Functional Status None recorded. Mental Status None recorded. Family History Nothing Reported. Medical History No medical history recorded. Past Encounters Encounter ID Performer Location Encounter Start Date Encounter Closed Date Diagnosis/Indication Diagnosis SNOMED-CT Code Diagnosis ICD10 Code Diagnosis IMO Codes Diagnosis Note [id number] Srikanth Luciano [place] [facility] [address] [place] [address] 02/01/2025 10:05:55 02/05/2025 11:23:01 Lumbar segmental dysfunction 682611169 M99.03 Low back pain 999080860 M54.50 Somatic dy sfunction of sacral spine 559129774 M99.04 Thoracic s egmental dysfunction 633125731 M99.02 Health Concerns Section Related Observation LastModified by Organization Detai ls LastModified Time None Recorded Concern Status LastModified by Organization Details LastModified Time None Recorded Payers Encounter Date Sequence Insurance Name Policy Number Policy Devries Covered Member ID Devries Member ID Guarantor Name 02/01/2025 [facility] [id number] Rileyemy Leigh Notes Date Note Type Note Provider Name and Address Organization Details Recorded Time 02/01/2025 text/html HPI - Lumbar SpineReported by PatientHPIFor location, patient reportsleft. For quality, patient reportsaching. For severity, patient reportsmoderate. For timing, patient reportsmorning. For aggravating factors, patient reportswalking,lift ing,carrying, andtwisting. For alleviating factors, patient reportsrest. Srikanth Luciano [place] [address], [place], [address], [facility] 02/01/2025 21:45:39
--- OUTSIDE RECORDS SUMMARY | 2025-04-17 17:06 | XMS_ITS | Clinical Summary ---
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 (DIAG OR SCREEN) (02/10/2025 8:28 AM CDT) PSA, TOTAL 0.09 < OR = 4.00 ng/mL 02/11/2025 5:42 AM CDT [employer] Comment: The total PSA value from this assay system is standardized against the WHO standard. The test result will be approximately 20% lower when compared to the equimolar-standardized total PSA ([place]). Comparison of serial PSA results should be interpreted with this fact in mind. This test was performed using the Siemens chemiluminescent method. Values obtained from different assay methods cannot be used interchangeably. PSA levels, regardless of value, should not be interpreted as absolute evidence of the presence or absence of disease. Blood BLOOD SPECIMEN / Unknown [facility] / Unknown 02/10/2025 8:28 AM CDT 02/10/2025 8:28 AM CDT Lailaher Shea Rodriguez DO CHEMISTRY Final Resu lt Performing Organization Address [facility] [address]/ZIP Co de Phone Number [employer] [address] [address], [place] [phone] * LDL CHOLESTEROL,DIRECT (01/04/2025 8:39 AM CDT) DIRECT LDL 50 <100 mg/dL [facility] Comment: Desirable range <100 mg/dL for primary prevention; <70 mg/dL for patients with CHD or diabetic patients with > or = 2 CHD risk factors. Blood BLOOD SPECIMEN / Unknown 01/04/2025 8:39 AM CDT 01/04/2025 8:40 AM CDT Lailaher Shea Rodriguez DO CHEMISTRY Final Resu lt [employer] [place] [address] [place] [address], [facility] [address] [place] [address] * SCAN-COLONOSCOPY (07/10/2024 12:00 AM WIRE HANGER) Scanner OTHER Final Result * ANTI HCV (05/16/2021 1:18 PM WIRE HANGER) HEPATITIS C ANTIBODY Non-React brenda Non-React brenda 05/16/2021 9:11 PM WIRE HANGER [facility] Comment:Antibodies to HCV no t detected; does not exclude the possibility of exposure to HCV. Blood BLOOD SPECIMEN / Unknown Venipuncture / Unknown 05/16/2021 1:18 PM WIRE HANGER 05/16/2021 1:18 PM WIRE HANGER Laila Rodriguez DO SEND OUTS Final Resu lt [facility] [address] [place] [address], [place] from Last 3 Months or Most Recently Relevant to Health Maintenance Insurance MEDICARE PART A HB ONLY [facility] Advance Directives * Full Code (Latest Code Status on File) Date Activated Date Inactivated Comments 11/17/2021 10:50 AM 11/18/2021 12:46 PM Question Answer Comments Code Status Discussion: Unable to Assess Preferences, Provider to review later * Full Code Date Activated Date Inactivated Comments 09/19/2018 3:26 PM 09/19/2018 6:42 PM * Full Code Date Activated Date Inactivated Comments 08/12/2008 12:33 PM 08/13/2008 2:16 AM Care Teams Child Care Counselor Relationship Specialty Start Date End Date Laila Rodriguez DO [address] [place] [address] PCP - General Family Practice 06/17/19 Christi Ascencio RN [facility] [address] [phone] [employer] Teacher - [facility] Registered Nurse 09/17/21 Camille Wagoner, RN [facility] [address] [address]183 [employer] Teacher - [employer] Registered Nurse 09/17/21 Radha Merino, RN [facility] [address] [address] [employer] Teacher - [employer] Registered Nurse 09/17/21
--- OUTSIDE RECORDS SUMMARY | 2025-04-17 17:06 | XMS_ITS | Continuity of Care Document ---
Author Organization [facility] Address [address] [facility] [address] [place] [address] Assessment Encounter Date Assessment Date Assessment LastModified by Organization Details LastModified Time 02/15/2025 02/15/2025 ASSESSMENT: Patient is a good candidate for [...] to contact our office. [email or web address] Not available 02/15/2025 10:09:40 Plan of Treatment Reminders Order Date Submit Date Provider Last Modified By Organization Details Last Modified Time Details Appointments DC Treatment 05 2024 10:00A M Srikanth Luciano DC Not [...] Organization Details Recorded Time Thoracic segmental dysfunction 862927885 Active 2023 Srikanth Luciano [place] [address] [facility], [place], [address], [place] [facility] 10:09:40 Somatic dysfunction of sacral spine 224763819 Active 2023 Srikanth Luciano ND [address] [facility], [place], [address], [place] [facility] 10:09:40 Lumbar segmental dysfunction 931230731 Active 2023 Srikanth Luciano ND [address] [facility], [place], [address], [place] [facility] 10:09:40 Low back pain 710993993 Active 2023 Srikanth Luciano ND [address] [facility], [place], [address], [place] [facility] 10:09:40 Neck pain 86425434 Active 2024 Srikanth LucianoDARROW, DC [address] [facility], [place], [address], [place] [facility] 17:21:38 Lesion of lumbar spine 869580615 Active 2024 Srikanth Luciano ND [address] [facility], [place], [address], [place] [facility] 17:21:38 Cervical segmental dysfunction 088372876 Active [address], [place], [address], [place] [facility] 17:21:38 Problem Notes None recorded. Procedures Surgical History Date Name Laterality Status Provider Name and Address Organization Details Recorded Time 23664: Spinal manipulation , 3 to 4 regions completed Srikanth LucianoDARROW, [place] [address] [facility], [place], [address], [place] [facility] 02/15/2025 10:09:40 5 [address]: Spinal manipulation , 3 to 4 regions completed Srikanth Ericksonbbels, [place] [address] [facility], [place], [address], [place] [facility] 02/01/2025 21:45:32 5 609[address]: Spinal manipulation , 3 to 4 regions completed Srikanth Ericksonbbels, DC [address] [facility], [place], [address], [place] [facility] 12/21/2024 14:21:59 5 58318: Spinal manipulation , 3 to 4 regions completed Srikanth Ericksonbbels, DC [address] [facility], [place], [address], [place] [facility] 12/15/2024 14:22:19 5 06073: Spinal manipulation , 3 to 4 regions completed Srikanth Luciano, DC [address] [facility], [place], [address], [place] [facility] 12/07/2024 11:20:45 5 59328: Spinal manipulation , 3 to 4 regions completed Srikanth Luciano, DC [address] [facility], [place], [address], [place] [facility] 11/23/2024 20:48:14 5 84321: Spinal manipulation , 3 to 4 regions completed Srikanth Luciano, DC [address] [facility], [place], [address], [place] [facility] 11/09/2024 17:22:02 5 99110: Spinal manipulation , 3 to 4 regions completed Srikanth Ericksonbbels, DC [address] [facility], [place], [address], [place] [facility] 10/22/2024 20:08:48 4 05871: Spinal manipulation , 3 to 4 regions completed Srikanth Ericksonbbels, DC [address] [facility], [place], [address], [place] [facility] 05/06/2024 15:10:28 4 82475: Spinal manipulation , 3 to 4 regions completed Srikanth Luciano DC [address] [facility], [place], [address], [facility] 04/22/2024 11:55:57 Imaging Results None recorded. Procedure Notes None recorded. Medical Equipment None Reported. Vitals None Recorded Social History None recorded. Functional Status None recorded. Mental Status None recorded. Family History Nothing Reported. Medical History No medical history recorded. Past Encounters Encounter ID Performer Location Encounter Start Date Encounter Closed Date Diagnosis/Indication Diagnosis SNOMED-CT Code Diagnosis ICD10 Code Diagnosis IMO Codes Diagnosis Note [id number] Srikanth Stahl AMINAH Luciano [facility] [address] [facility] [place] [address] 02/01/2025 10:05:55 02/05/2025 11:23:01 Lumbar segmental dysfunction 188747448 M99.03 Low back pain 855046310 M54.50 Somatic dy sfunction of sacral spine 357090780 M99.04 Thoracic s egmental dysfunction 369640571 M99.02 [id number] Srikanth Luciano [facility] [address] [facility] [place] [address] 02/15/2025 09:54:55 02/15/2025 16:55:40 Lumbar segmental dysfunction 771783837 M99.03 Low back pain 746067349 M54.50 Somatic dy sfunction of sacral spine 875644742 M99.04 Thoracic s egmental dysfunction 761913101 M99.02 Health Concerns Section Related Observation LastModified by Organization Detai ls LastModified Time None Recorded Concern Status LastModified by Organization Details LastModified Time None Recorded Payers Encounter Date Sequence Insurance Name Policy Number Policy Devries Covered Member ID Devries Member ID Guarantor Name 02/15/2025 [facility] Riley Leigh [id number] Riley Leigh Notes Date Note Type Note Provider Name and Address Organization Details Recorded Time 02/15/2025 text/html HPI - Lumbar SpineReported by PatientHPIFor location, patient reportsleft. For quality, patient reportsaching. For severity, patient reportsmoderate. For timing, patient reportsmorning. For aggravating factors, patient reportswalking,lift ing,carrying, andtwisting. For alleviating factors, patient reportsrest. Srikanth Luciano DC [address] [facility], [place], [address], [facility] 02/15/2025 10:10:03
--- OUTSIDE RECORDS SUMMARY | 2025-04-17 17:06 | XMS_ITS | Data Portability ---
Author Organization [place] [facility], [employer] - [facility] Address [address] [facility] [address] [place] [address] Assessment Encounter Date Assessment Date Assessment LastModified by Organization Details LastModified Time 12/07/2024 12/07/2024 ASSESSMENT: Patient is a good candidate for [...] should not hesitate to contact our office. Not available 12/07/2024 11:20:17 12/14/2024 12/14/2024 ASSESSMENT: Patient is a good candidate for [...] should not hesitate to contact our office. Not available 12/15/2024 14:22:08 12/21/2024 12/21/2024 ASSESSMENT: Patient is a good candidate for [...] should not hesitate to contact our office. Not available 12/21/2024 14:21:59 02/01/2025 02/01/2025 ASSESSMENT: Patient is a good [...] should not hesitate to contact our office. Not available 02/01/2025 21:45:25 02/15/2025 02/15/2025 ASSESSMENT: Patient is a good [...] should not hesitate to contact our office. Not available 02/15/2025 10:09:40 Plan of Treatment Reminders Order Date Submit Date Provider Last Modified By Organization Details Last Modified Time Details Appointments DC Treatment 05 2024 10:00A M Srikanth Luciano [place] Not available Not available Not available Lab None recorded. Referral None recorded. Procedures None recorded. Surgeries None recorded. Imaging None recorded. Medication Orders None recorded. Patient TargetsNo targets recorded. Patient InstructionsNo instructions recorded. Reason for Referral None Reported. Problems Name Problem SNOMED Code Status Onset Date Resolution Date Notes Provider Name and Address Organization Details Recorded Time Thoracic segmental dysfunction 064121370 Active [address], [place], [address], [facility] 10:09:40 Somatic dysfunction of sacral spine 636963141 Active [address], [place], [address], [facility] 10:09:40 Lumbar segmental dysfunction 584717206 Active 2023 [place], [place] [address] [facility], [place], [address], [facility] 10:09:40 Low back pain 524231021 Active 2023 Srikanth Luciano DC [address] [facility] [address], [place], [address], [facility] 10:09:40 Neck pain 63093507 Active 2024 Srikanth Luciano DC [address] [facility] [address], [place], [address], [facility] 17:21:38 Lesion of lumbar spine 706419704 Active 2024 Srikanth Luciano DC [address] [facility], [place], [address], [facility] 17:21:38 Cervical segmental dysfunction 344747210 Active 2024 Srikanth Luciano DC [address] [facility], [place], [address], [facility] 17:21:38 Problem Notes None recorded. Procedures Surgical History Date Name Laterality Status Provider Name and Address Organization Details Recorded Time 15552: Spinal manipulation , 3 to 4 regions completed AMINAH Albarran [facility] [address], [place], [address], [facility] 02/15/2025 10:09:40 5 68[address]: Spinal manipulation , 3 to 4 regions completed Srikanth Luciano DC [address] [facility], [place], [address], [facility] 02/01/2025 21:45:32 5 87258: Spinal manipulation , 3 to 4 regions completed Srikanth Luciano DC [address] [facility] [address], [place], [address], [facility] 12/21/2024 14:21:59 5 96151: Spinal manipulation , 3 to 4 regions completed AMINAH Albarran [facility] [address], [place], [address], [facility] 12/15/2024 14:22:19 5 47040: Spinal manipulation , 3 to 4 regions completed Srikanth Stahl AMINAH Luciano [address] [facility], [place], [address], [facility] 12/07/2024 11:20:45 5 25757: Spinal manipulation , 3 to 4 regions completed Srikanth Stahl AMINAH Luciano [address] [place] [address], [place], [address], [facility] 11/23/2024 20:48:14 5 96729: Spinal manipulation , 3 to 4 regions completed Srikanth Vegasge Luciano DC [address] [place] [address], [place], [address], [facility] 11/09/2024 17:22:02 5 20664: Spinal manipulation , 3 to 4 regions completed Srikanth Luciano DC [address] [place] [address], [place], [address], [facility] 10/22/2024 20:08:48 4 86006: Spinal manipulation , 3 to 4 regions completed Srikanth Stahl AMINAH Luciano [address] [place] [address], [place], [address], [facility] 05/06/2024 15:10:28 4 20315: Spinal manipulation , 3 to 4 regions completed Srikanth Luciano DC [address] [place] [address], [place], [address], [facility] 04/22/2024 11:55:57 Imaging Results None recorded. [...] ICD10 Code Diagnosis IMO Codes Diagnosis Note [id number] Srikanth Luciano DC [facility] [address] [place] [address] [facility] [place] [address] 04/22/2024 10:10:30 04/22/2024 13:24:20 Lumbar segmental dysfunction 747712615 M99.03 Low back pain 739411256 M54.50 Somatic dy sfunction of sacral spine 055150092 M99.04 Thoracic s egmental dysfunction 774927880 M99.02 [id number] Srikanth Luciano DC [facility] & [address] [place] [address] 05/06/2024 10:22:46 05/06/2024 15:25:30 Lumbar segmental dysfunction 989531385 M99.03 Low back pain 326842176 M54.50 Somatic dy sfunction of sacral spine 245124209 M99.04 Thoracic s egmental dysfunction 638869460 M99.02 [id number] Srikanth Luciano DC [address] [place] [address] 10/22/2024 10:58:16 10/23/2024 09:09:08 Lumbar segmental dysfunction 178820518 M99.03 Low back pain 579451547 M54.50 Somatic dy sfunction of sacral spine 473455783 M99.04 Thoracic s egmental dysfunction 914028626 M99.02 [id number] Srikanth Luciano DC [address] [place] [address] 11/09/2024 16:28:33 11/09/2024 17:25:39 Lesion of lumbar spine 072647629 M99.01 Neck pain 34197734 M54.2 Thoracic s egmental dysfunction 768706116 M99.02 Lumbar seg mental dysfunction 790095437 M99.03 Cervical s egmental dysfunction 848463169 M99.01 [id number] Srikanth Luciano DC [facility] & [address] [place] [address] 11/23/2024 11:16:52 11/25/2024 15:32:37 Lumbar segmental dysfunction 758552732 M99.03 Low back pain 428628468 M54.50 Somatic dy sfunction of sacral spine 165291957 M99.04 Thoracic s egmental dysfunction 381141241 M99.02 [id number] Srikanth Luciano DC [facility] & [address] [facility] [place] [address] 12/07/2024 10:57:39 12/07/2024 11:34:19 Lesion of lumbar spine 226436346 M99.01 Neck pain 62410358 M54.2 Thoracic s egmental dysfunction 970368451 M99.02 Lumbar seg mental dysfunction 847130107 M99.03 Cervical s egmental dysfunction 330316258 M99.01 [id number] Srikanth Luciano DC [facility] & [address] [place] [address] 12/14/2024 16:53:18 12/16/2024 09:09:27 Lesion of lumbar spine 999126894 M99.01 Neck pain 21853735 M54.2 Thoracic s egmental dysfunction 482857973 M99.02 Lumbar seg mental dysfunction 105015076 M99.03 Cervical s egmental dysfunction 564152112 M99.01 [id number] Srikanth Luciano DC [facility] & [address] [place] [address] 12/21/2024 12:24:51 12/21/2024 16:02:37 Lesion of lumbar spine 479272469 M99.01 Neck pain 39798145 M54.2 Thoracic s egmental dysfunction 072792788 M99.02 Lumbar seg mental dysfunction 688143231 M99.03 Cervical s egmental dysfunction 089232812 M99.01 [id number] Srikanth Luciano DC [facility] & [address] [facility] [address] 02/01/2025 10:05:55 02/05/2025 11:23:01 Lumbar segmental dysfunction 699232218 M99.03 Low back pain 977509576 M54.50 Somatic dy sfunction of sacral spine 542892864 M99.04 Thoracic s egmental dysfunction 700651332 M99.02 [id number] Srikanth Luciano DC [facility] [address] [facility] [place] [address] 02/15/2025 09:54:55 02/15/2025 16:55:40 Lumbar segmental dysfunction 420733802 M99.03 Low back pain 495611711 M54.50 Somatic dy sfunction of sacral spine 742567499 M99.04 Thoracic s egmental dysfunction 803913915 M99.02 Health Concerns Section Related Observation LastModified by Organization Detai ls LastModified Time None Recorded Concern Status LastModified by Organization Details LastModified Time None Recorded Advance Directives Directive None Recorded Payers Insurance Date Sequence Insurance Name Policy Number Policy Devries Covered Member ID Devries Member ID Guarantor Name 05/06/2024 1 [place] [employer] Riley Leigh [id number] Riley Leigh 04/16/2025 1 UCARE - DOS ON OR AFTER 19 (MEDICARE REPLACEMENT/A DVANTAGE - HMO) [id number] Riley Leigh [id number] Riley Leigh 05/08/2024 1 [place] [employer] [facility] Riley Leigh [id number] Riley Leigh 05/12/2024 [facility] Riley Leigh [id number] Riley Leigh Notes Date Note Type Note Provider Name and Address Organization Details Recorded Time 12/07/2024 text/html HPI - Cervical SpineReported by PatientHPIFor location, patient reportsleft. For quality, patient reportsaching. For severity, patient reportsmoderate. For duration, patient reports2 weeks. For timing, patient reportsgradual. For alleviating factors, patient reportsice. For aggravating factors, patient reportssitting. For associated symptoms, patient reportsno numbness/tingling. Srikanth Luciano DC [address] [facility], [place], [address], [facility] 12/07/2024 11:20:56 12/14/2024 text/html HPI - Cervical SpineReported by PatientHPIFor location, patient reportsleft. For quality, patient reportsaching. For severity, patient reportsmoderate. For duration, patient reports2 weeks. For timing, patient reportsgradual. For alleviating factors, patient reportsice. For aggravating factors, patient reportssitting. For associated symptoms, patient reportsno numbness/tingling. Srikanth Luciano DC [address] [facility], [place], [address], [facility] 12/15/2024 14:22:30 12/21/2024 text/html HPI - Cervical SpineReported by PatientHPIFor location, patient reportsleft. For quality, patient reportsaching. For severity, patient reportsmoderate. For duration, patient reports2 weeks. For timing, patient reportsgradual. For alleviating factors, patient reportsice. For aggravating factors, patient reportssitting. For associated symptoms, patient reportsno numbness/tingling. Srikanth Luciano DC [address] [facility], [place], [address], [facility] 12/21/2024 14:22:30 02/01/2025 text/html HPI - Lumbar SpineReported by PatientHPIFor location, patient reportsleft. For quality, patient reportsaching. For severity, patient reportsmoderate. For timing, patient reportsmorning. For aggravating factors, patient reportswalking,lifti ng,carrying, andtwisting. For alleviating factors, patient reportsrest. Srikanth Luciano DC [address] [facility], [place], [address], [facility] 02/01/2025 21:45:39 02/15/2025 text/html HPI - Lumbar SpineReported by PatientHPIFor location, patient reportsleft. For quality, patient reportsaching. For severity, patient reportsmoderate. For timing, patient reportsmorning. For aggravating factors, patient reportswalking,lifti ng,carrying, andtwisting. For alleviating factors, patient reportsrest. Srikanth Luciano DC [address] [facility], [place], [address], [facility] 02/15/2025 10:10:03
[2025-04-17 17:07] VITALS: BP 166/92; PULSE 59; RESP 18; TEMP 36.9; O2SAT 96; BMI 36.5
--- NOTE | 2025-04-17 17:18 | CRLHL7_ITS ---
For Patients: As a result of the Century Cures Act, medical imaging exams and procedure reports are released immediately into your electronic medical record. You may view this report before your referring provider. If you have questions, please contact your health care provider. INDICATION: Fall, right anterior chest pain and left lower ribs/mid axillary pain. TECHNIQUE: CT of the chest without IV contrast. Coronal and sagittal reconstructions. COMPARISON: CT chest 12/11/2022. FINDINGS: Cardiovascular structures: Normal heart size. Normal caliber thoracic aorta. The main pulmonary artery is enlarged measuring 3.3 cm which can be seen with pulmonary hypertension. Coronary artery calcifications. Mediastinum and demetria: Few mildly prominent mediastinal lymph nodes which are not enlarged by size criteria. No pericardial effusion. Lungs and pleura: Bibasilar atelectasis or scarring. No pleural effusion or pneumothorax. Faint scattered peripheral tree-in-bud opacities in the upper lobes may be infectious or inflammatory. Mild diffuse bronchial wall thickening. New 7 mm noncalcified pulmonary nodule along the right major fissure (series 5 image 47). Chest wall: Mild bilateral gynecomastia. Stable enlarged bilateral axillary lymph nodes with prominent fatty demetria. These are likely benign/reactive. Upper abdomen: Stable hepatic cysts. Cholecystectomy. The spleen is enlarged measuring 14.4 cm in AP dimension. Bones: Old fracture of the right anterior 4th rib. Probable acute nondisplaced fractures of the right anterior 5th and 6th ribs. Acute fractures of the left anterior 3rd-7th ribs. The 3rd rib fracture is mildly displaced. IMPRESSION: 1. Acute fractures of the left anterior 3rd-7th ribs. The 3rd rib fracture is mildly displaced. 2. Probable acute nondisplaced fractures of the right anterior 5th and 6th ribs. 3. Mild diffuse bronchial wall thickening suggesting bronchitis. Faint scattered tree-in-bud opacities are likely infectious or inflammatory. 4. New 7 mm noncalcified pulmonary nodule along the right major fissure. Please see follow-up guidelines below. 5. Dilated main pulmonary artery which can be seen with pulmonary hypertension. [employer] GUID[employer]INES - SOLID NODULES: : SINGLE LOW RISK - nodule less than 6 mm: No routine follow-up. - nodule 6-8 mm: CT at 6-12 months, then consider CT at 18-24 months. - nodule greater than 8 mm: Consider CT at 3 months, PET/CT or tissue sampling. SINGLE HIGH RISK - nodule less than 6 mm: Optional CT at 12 months. - nodule 6-8 mm: CT at 6-12 months, then CT at 18-24 months. - nodule greater than 8 mm: Consider CT at 3 months, PET/CT or tissue sampling. Please note that all CT scans at this facility use dose modulation, iterative reconstruction, and/or weight-based dosing when appropriate to reduce radiation dose to as low as reasonably achievable. Dictated by Karolyn Canales MD @ 04/17/2025 6:36:24 PM (Electronically Signed)
--- NOTE | 2025-04-17 17:18 | CRLHL7_ITS ---
For Patients: As a result of the Century Cures Act, medical imaging exams and procedure reports are released immediately into your electronic medical record. You may view this report before your referring provider. If you have questions, please contact your health care provider. Indication: Fall. Technique: Noncontrast CT of the cervical spine with multiplanar reconstruction utilizing bone and soft tissue algorithms. Comparison: None available. Findings: No acute fracture or traumatic subluxation. No lytic or blastic lesion. Normal vertebral alignment and stature. Unremarkable prevertebral soft tissues. Mild multilevel uncovertebral and facet joint arthrosis. No high-grade spinal or neural foraminal stenosis. Impression: No acute fracture or traumatic subluxation. Please note that all CT scans at this facility use dose modulation, iterative reconstruction, and/or weight-based dosing when appropriate to reduce radiation dose to as low as reasonably achievable. Dictated by Desmond Chiang MD @ 04/17/2025 6:25:27 PM (Electronically Signed)
--- NOTE | 2025-04-17 17:20 | CRLHL7_ITS ---
For Patients: As a result of the Century Cures Act, medical imaging exams and procedure reports are released immediately into your electronic medical record. You may view this report before your referring provider. If you have questions, please contact your health care provider. INDICATION: Fall, head trauma. TECHNIQUE: Noncontrast CT of the head with multiplanar reconstruction utilizing bone and soft tissue algorithms. COMPARISON: CT head dated 01/24/2023. FINDINGS: No acute intracranial hemorrhage. The you-white matter interface is preserved. The ventricles are normal in size. No abnormal extra-axial fluid collection is identified. No calvarial fracture. Bilateral pseudophakia. The imaged paranasal sinuses and mastoid air cells are clear. IMPRESSION: No acute intracranial abnormality. Please note that all CT scans at this facility use dose modulation, iterative reconstruction, and/or weight-based dosing when appropriate to reduce radiation dose to as low as reasonably achievable. Dictated by Desmond Chiang MD @ 04/17/2025 6:16:18 PM (Electronically Signed)
--- OUTSIDE RECORDS SUMMARY | 2025-04-17 17:25 | XMS_ITS | CCD ---
Author Organization Unknown Care Team Providers Care Risk Assessment Consultant Name Role Phone Sonography Technologist, [place] Primary Care Provider Unava ilable Unavailable Chronic Care Management Unavaila ble Summary Purpose DataExchange Insurance Providers Payer name Policy type / Coverage type Covered democrat ID Effective Begin Date Effective End Date [facility] Commercial Insurance [id number] 2021 Unkn own Family History Family History [...]
--- OUTSIDE RECORDS SUMMARY | 2025-04-17 17:25 | XMS_ITS | CCD ---
Author Organization Unknown Care Team Providers Care Screen Printing Inspector Name Role Phone Recruiting Associate, [place] Primary Care Provider Unava ilable Unavailable Chronic Care Management Unavaila ble Summary Purpose DataExchange Insurance Providers Payer name Policy type / Coverage type Covered republican ID Effective Begin Date Effective End Date [facility] Commercial Insurance [id number] 2021 Unkn own Family History Family History [...]
--- NOTE | 2025-04-17 17:35 | ED.FALL ---
HPI - Fall General Date Seen: 04/17/25 Chief Complaint: Fall/Minor Trauma Stated Complaint: fall Time Seen by Provider: 04/17/25 17:12 Source: patient Mode of arrival: EMS Limitations: no limitations History of Present Illness HPI Narrative: Patient is a 61-year-old male presenting to the emergency department via ambulance for left posterior lower rib pain and axillary pain. He states he was walking his dogs outside this assisted living when he slipped and fell and along his left side. Since then has been having lab from mentioned pain. Also some mild right-sided chest pain that occurred only after the fall. Did not have any chest or back pain prior to this fall. States he did hit his head in the back of his head bounced off the ice he states. Is not on any blood thinners. States he has a mild headache but denies vision changes, weakness, numbness, lightheadedness, abdominal pain, shortness of breath. Does states he is feeling dizzy. He states he has had concussions before and states this feels like a previous concussion. Related Data Home Medications ?Medication ?Instructions ?Recorded ?Confirmed acetaminophen 500 mg tablet 1,000 mg PO TID 03/10/22 03/29/25 alprazolam 1 mg tablet 1 mg PO BID 03/10/22 03/29/25 atorvastatin 40 mg tablet 40 mg PO DAILY 03/10/22 03/29/25 bupropion HCl 100 mg tablet,12 hr 100 mg PO BID 03/10/22 03/29/25 sustained-release cyanocobalamin (vitamin B-12) 1,000 mcg PO DAILY 03/10/22 03/29/25 1,000 mcg tablet escitalopram oxalate 10 mg tablet 10 mg PO DAILY 03/10/22 03/29/25 gabapentin 300 mg capsule 900 mg PO TID 03/10/22 03/29/25 hydroxyzine HCl 50 mg tablet 50 mg PO BID 03/10/22 03/29/25 insulin aspart U-100 100 unit/mL 1 sliding scale dose subcut 03/10/22 03/29/25 (3 mL) subcutaneous pen (Novolog TIDWMEAL FlexPen U-100 Insulin aspart) insulin glargine 100 unit/mL (3 70 unit subcut DAILY 03/10/22 03/29/25 mL) subcutaneous pen (Lantus Solostar U-100 Insulin) levothyroxine 75 mcg tablet 75 mcg PO DAILY 03/10/22 03/29/25 losartan 50 mg tablet 50 mg PO DAILY 03/10/22 03/29/25 metformin 500 mg tablet,extended 2,000 mg PO DAILY 03/10/22 03/29/25 release 24 hr omeprazole 20 mg capsule,delayed 20 mg PO DAILY 03/10/22 03/29/25 release propranolol 20 mg tablet 20 mg PO TID 03/10/22 03/29/25 tamsulosin 0.4 mg capsule 0.4 mg PO Q24H 03/10/22 03/29/25 trazodone 50 mg tablet 50 mg PO HS 03/10/22 03/29/25 hydrocortisone 1 % topical cream 1 applic topical BID PRN 01/24/23 03/29/25 multivitamin with folic acid 400 1 tab PO QAM 04/29/24 03/29/25 mcg tablet (Tab-A-Reina) alprazolam 0.5 mg tablet mg PO 06/24/24 03/29/25 amlodipine 10 mg tablet mg PO DAILY 06/24/24 03/29/25 blood sugar diagnostic (OneTouch #10 ea 06/24/24 03/29/25 Ultra Test strips) bupropion HCl 150 mg 24 hr tablet, mg PO DAILY 06/24/24 03/29/25 extended release bupropion HCl 300 mg 24 hr tablet, mg PO DAILY 06/24/24 03/29/25 extended release meclizine 12.5 mg tablet mg PO DAILY 06/24/24 03/29/25 mirtazapine 15 mg tablet mg PO 06/24/24 03/29/25 Allergies Allergy/AdvReac Type Severity Reaction Status Date / Time Penicillins Allergy Verified 03/29/25 09:53 strawberry Allergy Verified 03/29/25 09:53 Sulfa (Sulfonamide Allergy Verified 03/29/25 09:53 Antibiotics) benttyl Allergy Uncoded 03/29/25 09:53 Review of Systems Status of ROS: Reports: 10 or more systems reviewed and unremarkable except as noted in History and below [facility] Medical History Anxiety ?F41.9 - Anxiety disorder, unspecified (ICD-10) Depression ?F32.A - Depression, unspecified (ICD-10) Hypothyroid ?E03.9 - Hypothyroidism, unspecified (ICD-10) Diabetic acidosis, type II ?E11.10 - Type 2 diabetes mellitus with ketoacidosis without coma (ICD-10) Hypertension ?I10 - Essential (primary) hypertension (ICD-10) Social History Smoking Status: Never smoker Do you use any of these nicotine containing products: None How often do you have a drink containing alcohol: never AUDIT-C Alcohol total score: 0 Non-prescribed substance use: denies use Exam Narrative: Exam Narrative: Const: Well-nourished, Well-developed, in mild distress Eyes: PERRL, no conjunctival injection, and symmetrical lids HENT: Atraumatic external nose and ears. Moist mucous membranes. Neck: Symmetric, trachea midline, No thyromegaly. CVS: RRR, No murmurs or gallops. Peripheral pulses 2+ and equal in all extremities RESP: Unlabored respiratory effort. Clear to auscultation bilaterally. GI: Nontender/Nondistended, No rebound or guarding. MSK:Extremities w/o deformity, Normal Active ROM, tenderness reproducible to right mid chest. Also has pain mid axillary line around rib 5 or 6 and back pain around rib 8 or 9 on the left Skin: Warm, Dry. No rashes or lesions. Neuro: Normal Muscle tone, No focal neurological deficits. Psych: Awake, Alert, & Oriented x3. Appropriate mood and affect. Const: Vital Signs, click to edit/add: Vital Signs - 24 hr 04/17/25 17:07 Temperature 98.5 F Pulse Rate [Right Pulse Oximeter] 59 L Respiratory Rate 18 Blood Pressure [Ri ght Upper Arm] 166/92 H Pulse Oximetry 96 Oxygen Delivery Me thod Room Air Course Vital Signs Vital signs: Initial Vital Signs Temperature 98.5 F 04/17/25 17:07 Temperature Source Temporal Artery Scan 04/17/25 17:07 Pulse Rate 59 L 04/17/25 17:07 Respiratory Rate 18 04/17/25 17:07 Blood Pressure 166/92 H 04/17/25 17:07 Blood Pressure Mean 116 H 04/17/25 17:07 Blood Pressure Position Sitting 04/17/25 17:07 Pulse Oximetry 96 04/17/25 17:07 Oxygen Delivery Method Room Air 04/17/25 17:07 Vital Signs Temperature 98.5 F 04/17/25 17:07 Pulse Rate 59 L 04/17/25 17:07 Respiratory Rate 18 04/17/25 17:07 Blood Pressure 166/92 H 04/17/25 17:07 Pulse Oximetry 96 04/17/25 17:07 Oxygen Delivery Method Room Air 04/17/25 17:07 Temperature 98.5 F 04/17/25 17:07 Pulse Rate 59 L 04/17/25 17:07 Respiratory Rate 18 04/17/25 17:07 Blood Pressure 166/92 H 04/17/25 17:07 Pulse Oximetry 96 04/17/25 17:07 Oxygen Delivery Method Room Air 04/17/25 17:07 MDM - Fall MDM Narrative Medical decision making narrative: Patient is 69-year-old male presenting to the emergency department after a fall. Most of his issues is thoracic rib pain. Is not having any abdominal pain. Will do CT scan of the chest. Will also do CT scan of the head and cervical spine as he did his head. Is having some dizziness and this is likely related to a concussion from hitting his head. Declined any pain medication. CT scan of the head and cervical spine interpreted by myself and the radiologist showed no acute concerning abnormalities. The CT scan of the chest interpreted by myself the radiologist shows 5 fractures on the left into fractures on the right consistent with his pain. Also shows signs of bronchitis. Incidentally also show signs of pulmonary hypertension and a new 7 mm noncalcified pulmonary nodule. Due to the number of fractures be a unable to keep him here in [place]. I spoke to Dr. Wright of [facility] [place] who accepted him for transfer. Patient is agreeable to this plan. Imaging Data CT scan head: Attestation: I have reviewed the pertinent imaging results. Radiologist's impression: No acute intracranial abnormality. Please note that all CT scans at this facility use dose modulation, iterative reconstruction, and/or weight-based dosing when appropriate to reduce radiation dose to as low as reasonably achievable. Dictated by Desmond Chiang MD @ 04/17/2025 6:16:[address] scan cervical spine: Attestation: I have reviewed the pertinent imaging results. Radiologist's impression: No acute fracture or traumatic subluxation. Please note that all CT scans at this facility use dose modulation, iterative reconstruction, and/or weight-based dosing when appropriate to reduce radiation dose to as low as reasonably achievable. Dictated by Desmond Chiang MD @ 04/17/2025 6:25:[address] scan chest: Attestation: I have reviewed the pertinent imaging results. Radiologist's impression: 1. Acute fractures of the left anterior 3rd-7th ribs. The 3rd rib fracture is mildly displaced. 2. Probable acute nondisplaced fractures of the right anterior 5th and 6th ribs. 3. Mild diffuse bronchial wall thickening suggesting bronchitis. Faint scattered tree-in-bud opacities are likely infectious or inflammatory. 4. New 7 mm noncalcified pulmonary nodule along the right major fissure. Please see follow-up guidelines below. 5. Dilated main pulmonary artery which can be seen with pulmonary hypertension. Critical Care Time Critical Care Time Critical Care Time: Yes Attestation: The patient required my highest level preparedness to intervene emergently and I personally spent this critical care time directly and personally managing the patient. This critical care time included: Obtaining a history; Examining the patient; Pulse oximetry; Ordering and reviewing of studies; Arranging urgent treatment with development of a management plan; Evaluation of patients response to treatment; Frequent reassessment discussions with other providers. This critical care time was performed to assess and manage the high probability of imminent life-threatening deterioration that could result in multiorgan failure. It was exclusive of separate billable procedures and treating other patients and teaching time. Total Critical Care Time in Minutes: 32 Discharge Plan Discharge Clinical Impression: Multiple fractures of ribs Qualifiers: Encounter type: initial encounter Fracture type: closed Laterality: bilateral Qualified Code(s): S22.43XA - Multiple fractures of ribs, bilateral, initial encounter for closed fracture Patient Disposition: General Acute Hospital Condition: Guarded Additional Instructions: Be size the rib fractures he CT scan of the chest shows a pulmonary nodule. BC these frequently but follow-up with the primary care provider about repeat imaging. Your CT scan also shows signs of pulmonary hypertension.
[2025-04-17 19:35] VITALS: BP 184/90; PULSE 61; RESP 18; O2SAT 96
== END 2025-04-17 19:45 | disposition short-term general hospital (02) ==
PROVIDERS: Emergency Provider Student in an Organized Health Care Education/Training Program; PCP Family Medicine
DX: S22.43XA Multiple fractures of ribs, bilateral, initial encounter for closed fracture (principal); W00.0XXA Fall on same level due to ice and snow, initial encounter; J40 Bronchitis, not specified as acute or chronic; I27.20 Pulmonary hypertension, unspecified; R91.1 Solitary pulmonary nodule
CPT/HCPCS: 70450; 71250; 72125; 96374; 99285; 99291; J1885

== ENCOUNTER 2025-04-17 19:41 | Outpatient (CLI) | payer OTHER, SELFPAY | END 2025-04-17 19:42 | disposition home or self-care (01) | LOC: AMB 04-20 18:57 | PROVIDERS: PCP Family Medicine; Visit Provider Emergency Medicine Emergency Medical Services | DX: S22.49XA Multiple fractures of ribs, unspecified side, initial encounter for closed fracture (principal) | CPT/HCPCS: A0425; A0427 ==